=== PATIENT | male | born 1940 | race Caucasian/White ===

== ENCOUNTER 2023-07-07 08:53 | Outpatient (RCR) | payer MEDICARE, SELFPAY ==
[2023-06-23] VITALS (11 sets, daily range): BP systolic 135–158; BP diastolic 48–59; BMI 29.8
[2023-06-23] MEDS: NSS 250 IV (09:09)
[2023-06-23 09:10] LABS: % Basophils 0.5 % (0-2); % Eosinophils 1.3 % (0-6); % Immature Granulocytes 0.3 % (0-0.5); % Lymphocytes 15.8 % (20.5-51.1); % Neutrophils 68.1 % (42.2-75.2); Absolute Eosinophils 0.1 10^3/uL (0-0.7); Absolute Lymphocytes 0.6 10^3/uL (1.2-3.4); Absolute Monocytes 0.5 10^3/uL (0.1-0.6); Absolute Neutrophils 2.6 10^3/uL (1.4-6.5); Hematocrit 31.4 % (39.0-52.0); Hemoglobin 10.5 g/dL (13.0-18.0); Mean Corp Hgb Conc. 33.4 g/dL (33.0-37.0); Mean Corpuscular Hgb 30.2 pg (27.0-31.0); Mean Corpuscular Volume 90.2 fL (80.0-94.0); Mean Platelet Volume 9.2 fL (7.4-10.4); Platelet Count 199 10^3/uL (130-400); Red Blood Cell Count 3.48 10^6/uL (4.70-6.10); Red Cell Dist. Width 15.4 % (11.5-14.5); White Blood Cell Count 3.9 10^3/uL (4.8-10.8)
[2023-06-23] MEDS: TYLENOL 650 MG PO (09:10)
[2023-06-23] MEDS: GAMMAGARD 50 IV (09:10)
[2023-06-23] MEDS: GAMMAGARD 200 IV ×4 (09:58→12:47)
[2023-06-23 10:50] LABS: ALT (SGPT) 24 U/L (0-50); AST (SGOT) 35 U/L (17-59); Alkaline Phosphatase 91 U/L (38-126); Blood Urea Nitrogen 43 mg/dl (9-20); Calcium 9.2 mg/dl (8.4-10.2); Carbon Dioxide 27 mmol/L (22-30); Chloride 102 mmol/L (98-107); Creatine Phosphokinase 281 U/L (55-170); Estimated Creatinine Clearance 40 ml/min; Glucose 95 mg/dl (70-99); Potassium 3.9 mmol/L (3.5-5.1); Sodium 135 mmol/L (135-145); Total Bilirubin 0.7 mg/dl (0.2-1.3); Total Protein 7.5 g/dl (6.3-8.2); eGFR 37.35
[2023-06-23 11:12] LABS: Erythrocyte Sed Rate 85 mm/hour (0-20)
[2023-06-23 11:53] LABS: Folate > 20.0 ng/ml (2.76-20); Vitamin B12 833 pg/ml (239-931)
[2023-07-07] VITALS (12 sets, daily range): BP systolic 128–157; BP diastolic 49–67; BMI 29.9
[2023-07-07] MEDS: TYLENOL 650 MG PO (09:22)
[2023-07-07] MEDS: GAMMAGARD 50 IV (09:29)
[2023-07-07 09:46] LABS: Hematocrit 30.4 % (39.0-52.0); Hemoglobin 10.2 g/dL (13.0-18.0); Mean Corp Hgb Conc. 33.6 g/dL (33.0-37.0); Mean Corpuscular Hgb 30.3 pg (27.0-31.0); Mean Corpuscular Volume 90.2 fL (80.0-94.0); Mean Platelet Volume 9.8 fL (7.4-10.4); Platelet Count 250 10^3/uL (130-400); Red Blood Cell Count 3.37 10^6/uL (4.70-6.10); Red Cell Dist. Width 15.3 % (11.5-14.5); White Blood Cell Count 4.4 10^3/uL (4.8-10.8)
[2023-07-07] MEDS: NSS 250 IV (10:00)
[2023-07-07] MEDS: GAMMAGARD 200 IV (10:19)
[2023-07-07 10:43] LABS: Erythrocyte Sed Rate 132 mm/hour (0-20)
[2023-07-07 10:49] LABS: ALT (SGPT) 23 U/L (0-50); AST (SGOT) 33 U/L (17-59); Albumin 3.9 g/dl (3.5-5.0); Alkaline Phosphatase 87 U/L (38-126); Blood Urea Nitrogen 41 mg/dl (9-20); Carbon Dioxide 26 mmol/L (22-30); Chloride 103 mmol/L (98-107); Creatine Phosphokinase 223 U/L (55-170); Estimated Creatinine Clearance 44 ml/min; Glucose 116 mg/dl (70-99); Potassium 3.9 mmol/L (3.5-5.1); Sodium 136 mmol/L (135-145); Total Bilirubin 0.6 mg/dl (0.2-1.3); Total Protein 7.3 g/dl (6.3-8.2); eGFR 43.02
[2023-07-07] MEDS: GAMMAGARD 300 IV ×2 (11:27→12:50)
[2023-07-07 11:56] LABS: Folate > 20.0 ng/ml (2.76-20); Vitamin B12 989 pg/ml (239-931)
== END 2023-07-07 15:41 | disposition home or self-care (01) ==
LOC: OID 08:53
PROVIDERS: ATTENDING PHYSICIAN Psychiatry & Neurology Neurology; FAMILY PHYSICIAN Family Medicine
DX: G61.81 Chronic inflammatory demyelinating polyneuritis (principal)
CPT/HCPCS: 36415; 80053; 82550; 82607; 82746; 85025; 85027; 85652; 96361; 96365; 96366; J1569

== ENCOUNTER 2023-08-04 08:28 | Outpatient (RCR) | payer MEDICARE, SELFPAY ==
[2023-07-21] VITALS (12 sets, daily range): BP systolic 123–154; BP diastolic 56–85; BMI 29.9
[2023-07-21 09:07] LABS: % Basophils 0.8 % (0-2); % Lymphocytes 17.7 % (20.5-51.1); % Monocytes 12.7 % (1.7-9.3); % Neutrophils 65.8 % (42.2-75.2); Absolute Eosinophils 0.1 10^3/uL (0-0.7); Absolute Lymphocytes 0.6 10^3/uL (1.2-3.4); Absolute Monocytes 0.5 10^3/uL (0.1-0.6); Absolute Neutrophils 2.4 10^3/uL (1.4-6.5); Hematocrit 31.7 % (39.0-52.0); Hemoglobin 10.5 g/dL (13.0-18.0); Mean Corp Hgb Conc. 33.1 g/dL (33.0-37.0); Mean Corpuscular Hgb 29.8 pg (27.0-31.0); Mean Corpuscular Volume 90.1 fL (80.0-94.0); Mean Platelet Volume 9.1 fL (7.4-10.4); Platelet Count 201 10^3/uL (130-400); Red Blood Cell Count 3.52 10^6/uL (4.70-6.10); White Blood Cell Count 3.6 10^3/uL (4.8-10.8)
[2023-07-21] MEDS: TYLENOL 650 MG PO (09:10)
[2023-07-21] MEDS: NSS 250 IV (09:10)
[2023-07-21] MEDS: GAMMAGARD 50 IV (09:10)
[2023-07-21 09:45] LABS: ALT (SGPT) 22 U/L (0-50); AST (SGOT) 32 U/L (17-59); Alkaline Phosphatase 90 U/L (38-126); Blood Urea Nitrogen 40 mg/dl (9-20); Carbon Dioxide 29 mmol/L (22-30); Chloride 102 mmol/L (98-107); Creatine Phosphokinase 240 U/L (55-170); Estimated Creatinine Clearance 42 ml/min; Glucose 114 mg/dl (70-99); Sodium 136 mmol/L (135-145); Total Bilirubin 0.6 mg/dl (0.2-1.3); Total Protein 7.7 g/dl (6.3-8.2)
[2023-07-21] MEDS: GAMMAGARD 200 IV (09:55)
[2023-07-21 10:51] LABS: Folate > 20.0 ng/ml (2.76-20); Vitamin B12 784 pg/ml (239-931)
[2023-07-21] MEDS: GAMMAGARD 300 IV ×2 (11:03→12:28)
[2023-07-21 11:49] LABS: Erythrocyte Sed Rate 113 mm/hour (0-20)
[2023-08-04] VITALS (11 sets, daily range): BP systolic 117–136; BP diastolic 48–61; BMI 30.1
[2023-08-04 08:57] LABS: % Basophils 0.7 % (0-2); % Eosinophils 3.2 % (0-6); % Immature Granulocytes 0.2 % (0-0.5); % Lymphocytes 17.9 % (20.5-51.1); % Monocytes 12.7 % (1.7-9.3); % Neutrophils 65.3 % (42.2-75.2); Absolute Eosinophils 0.1 10^3/uL (0-0.7); Absolute Lymphocytes 0.7 10^3/uL (1.2-3.4); Absolute Monocytes 0.5 10^3/uL (0.1-0.6); Absolute Neutrophils 2.6 10^3/uL (1.4-6.5); Hematocrit 32.7 % (39.0-52.0); Mean Corp Hgb Conc. 33.6 g/dL (33.0-37.0); Mean Corpuscular Hgb 30.3 pg (27.0-31.0); Mean Corpuscular Volume 90.1 fL (80.0-94.0); Mean Platelet Volume 9.2 fL (7.4-10.4); Platelet Count 201 10^3/uL (130-400); Red Blood Cell Count 3.63 10^6/uL (4.70-6.10); Red Cell Dist. Width 15.1 % (11.5-14.5)
[2023-08-04] MEDS: TYLENOL 650 MG PO (09:00)
[2023-08-04] MEDS: NSS 250 IV (09:00)
[2023-08-04] MEDS: GAMMAGARD 50 IV (09:01)
[2023-08-04 09:39] LABS: ALT (SGPT) 22 U/L (0-50); AST (SGOT) 33 U/L (17-59); Albumin 4.2 g/dl (3.5-5.0); Alkaline Phosphatase 94 U/L (38-126); Blood Urea Nitrogen 41 mg/dl (9-20); Calcium 9.1 mg/dl (8.4-10.2); Carbon Dioxide 26 mmol/L (22-30); Chloride 102 mmol/L (98-107); Creatine Phosphokinase 253 U/L (55-170); Estimated Creatinine Clearance 36 ml/min; Glucose 101 mg/dl (70-99); Sodium 137 mmol/L (135-145); Total Bilirubin 0.5 mg/dl (0.2-1.3); Total Protein 7.9 g/dl (6.3-8.2); eGFR 32.91
[2023-08-04 09:43] LABS: Erythrocyte Sed Rate 108 mm/hour (0-20)
[2023-08-04] MEDS: GAMMAGARD 200 IV (09:56)
[2023-08-04 10:47] LABS: Folate > 20.0 ng/ml (2.76-20); Vitamin B12 855 pg/ml (239-931)
[2023-08-04] MEDS: GAMMAGARD 300 IV ×2 (11:00→12:30)
== END 2023-08-05 10:07 | disposition home or self-care (01) ==
LOC: OID 08:28
PROVIDERS: ATTENDING PHYSICIAN Psychiatry & Neurology Neurology; FAMILY PHYSICIAN Family Medicine
DX: G61.81 Chronic inflammatory demyelinating polyneuritis (principal)
CPT/HCPCS: 36415; 80053; 82550; 82607; 82746; 85025; 85652; 96361; 96365; 96366; J1569

== ENCOUNTER 2023-09-15 08:28 | Outpatient (RCR) | payer MEDICARE, SELFPAY ==
[2023-08-18] VITALS (11 sets, daily range): BP systolic 132–175; BP diastolic 55–70; BMI 30.2
[2023-08-18 09:09] LABS: % Basophils 0.8 % (0-2); % Eosinophils 3.1 % (0-6); % Immature Granulocytes 0.4 % (0-0.5); % Neutrophils 72.7 % (42.2-75.2); Absolute Eosinophils 0.2 10^3/uL (0-0.7); Absolute Lymphocytes 0.6 10^3/uL (1.2-3.4); Absolute Monocytes 0.5 10^3/uL (0.1-0.6); Absolute Neutrophils 3.6 10^3/uL (1.4-6.5); Hematocrit 31.5 % (39.0-52.0); Hemoglobin 10.6 g/dL (13.0-18.0); Mean Corp Hgb Conc. 33.7 g/dL (33.0-37.0); Mean Corpuscular Hgb 30.1 pg (27.0-31.0); Mean Corpuscular Volume 89.5 fL (80.0-94.0); Mean Platelet Volume 9.4 fL (7.4-10.4); Platelet Count 202 10^3/uL (130-400); Red Blood Cell Count 3.52 10^6/uL (4.70-6.10); Red Cell Dist. Width 15.1 % (11.5-14.5); White Blood Cell Count 4.9 10^3/uL (4.8-10.8)
[2023-08-18] MEDS: TYLENOL 650 MG PO (09:09)
[2023-08-18] MEDS: NSS 250 IV (09:09)
[2023-08-18] MEDS: GAMMAGARD 50 IV (09:10)
[2023-08-18] MEDS: GAMMAGARD 200 IV (10:01)
[2023-08-18 10:13] LABS: ALT (SGPT) 22 U/L (0-50); AST (SGOT) 30 U/L (17-59); Albumin 4.1 g/dl (3.5-5.0); Alkaline Phosphatase 87 U/L (38-126); Blood Urea Nitrogen 38 mg/dl (9-20); Calcium 9.4 mg/dl (8.4-10.2); Carbon Dioxide 25 mmol/L (22-30); Chloride 103 mmol/L (98-107); Creatine Phosphokinase 224 U/L (55-170); Estimated Creatinine Clearance 42 ml/min; Glucose 111 mg/dl (70-99); Potassium 3.8 mmol/L (3.5-5.1); Sodium 137 mmol/L (135-145); Total Bilirubin 0.5 mg/dl (0.2-1.3); Total Protein 7.8 g/dl (6.3-8.2)
[2023-08-18 10:31] LABS: Erythrocyte Sed Rate 106 mm/hour (0-20)
[2023-08-18] MEDS: GAMMAGARD 300 IV ×2 (11:08→12:27)
[2023-08-18 13:42] LABS: Folate > 20.0 ng/ml (2.76-20); Vitamin B12 988 pg/ml (239-931)
[2023-09-01] VITALS (12 sets, daily range): BP systolic 130–168; BP diastolic 57–73
[2023-09-01 09:00] LABS: % Basophils 1.2 % (0-2); % Eosinophils 3.3 % (0-6); % Immature Granulocytes 0.2 % (0-0.5); % Monocytes 12.1 % (1.7-9.3); % Neutrophils 65.2 % (42.2-75.2); Absolute Basophils 0.1 10^3/uL (0-0.2); Absolute Eosinophils 0.2 10^3/uL (0-0.7); Absolute Lymphocytes 0.9 10^3/uL (1.2-3.4); Absolute Monocytes 0.6 10^3/uL (0.1-0.6); Absolute Neutrophils 3.2 10^3/uL (1.4-6.5); Hematocrit 31.7 % (39.0-52.0); Hemoglobin 10.5 g/dL (13.0-18.0); Mean Corp Hgb Conc. 33.1 g/dL (33.0-37.0); Mean Corpuscular Hgb 29.4 pg (27.0-31.0); Mean Corpuscular Volume 88.8 fL (80.0-94.0); Platelet Count 227 10^3/uL (130-400); Red Blood Cell Count 3.57 10^6/uL (4.70-6.10); White Blood Cell Count 4.9 10^3/uL (4.8-10.8)
[2023-09-01] MEDS: NSS 250 IV (09:04)
[2023-09-01] MEDS: TYLENOL 650 MG PO (09:05)
[2023-09-01] MEDS: GAMMAGARD 50 IV (09:05)
[2023-09-01 09:48] LABS: ALT (SGPT) 20 U/L (0-50); AST (SGOT) 27 U/L (17-59); Albumin 4.1 g/dl (3.5-5.0); Alkaline Phosphatase 89 U/L (38-126); Blood Urea Nitrogen 41 mg/dl (9-20); Calcium 9.4 mg/dl (8.4-10.2); Carbon Dioxide 24 mmol/L (22-30); Chloride 104 mmol/L (98-107); Creatine Phosphokinase 230 U/L (55-170); Estimated Creatinine Clearance 42 ml/min; Glucose 111 mg/dl (70-99); Potassium 4.1 mmol/L (3.5-5.1); Sodium 137 mmol/L (135-145); Total Bilirubin 0.5 mg/dl (0.2-1.3); Total Protein 7.8 g/dl (6.3-8.2)
[2023-09-01] MEDS: GAMMAGARD 200 IV (09:51)
[2023-09-01 09:56] LABS: Erythrocyte Sed Rate 130 mm/hour (0-20)
[2023-09-01] MEDS: GAMMAGARD 300 IV ×2 (11:01→12:24)
[2023-09-01 11:48] LABS: Folate > 20.0 ng/ml (2.76-20); Vitamin B12 778 pg/ml (239-931)
[2023-09-15] VITALS (12 sets, daily range): BP systolic 128–150; BP diastolic 43–53; BMI 29.6
[2023-09-15 08:58] LABS: % Eosinophils 4.4 % (0-6); % Lymphocytes 17.4 % (20.5-51.1); % Monocytes 10.7 % (1.7-9.3); % Neutrophils 66.5 % (42.2-75.2); Absolute Eosinophils 0.2 10^3/uL (0-0.7); Absolute Lymphocytes 0.7 10^3/uL (1.2-3.4); Absolute Monocytes 0.4 10^3/uL (0.1-0.6); Absolute Neutrophils 2.8 10^3/uL (1.4-6.5); Hematocrit 30.6 % (39.0-52.0); Hemoglobin 10.3 g/dL (13.0-18.0); Mean Corp Hgb Conc. 33.7 g/dL (33.0-37.0); Mean Corpuscular Hgb 29.9 pg (27.0-31.0); Mean Platelet Volume 9.1 fL (7.4-10.4); Platelet Count 206 10^3/uL (130-400); Red Blood Cell Count 3.44 10^6/uL (4.70-6.10); Red Cell Dist. Width 15.4 % (11.5-14.5); White Blood Cell Count 4.1 10^3/uL (4.8-10.8)
[2023-09-15] MEDS: NSS 250 IV (09:02)
[2023-09-15] MEDS: GAMMAGARD 50 IV (09:03)
[2023-09-15] MEDS: TYLENOL 650 MG PO (09:03)
[2023-09-15 09:41] LABS: ALT (SGPT) 22 U/L (0-50); AST (SGOT) 28 U/L (17-59); Alkaline Phosphatase 88 U/L (38-126); Blood Urea Nitrogen 38 mg/dl (9-20); Calcium 9.4 mg/dl (8.4-10.2); Carbon Dioxide 27 mmol/L (22-30); Chloride 102 mmol/L (98-107); Creatine Phosphokinase 186 U/L (55-170); Estimated Creatinine Clearance 40 ml/min; Glucose 140 mg/dl (70-99); Potassium 3.8 mmol/L (3.5-5.1); Sodium 136 mmol/L (135-145); Total Bilirubin 0.4 mg/dl (0.2-1.3); Total Protein 7.8 g/dl (6.3-8.2); eGFR 37.35
[2023-09-15 09:46] LABS: Erythrocyte Sed Rate 123 mm/hour (0-20)
[2023-09-15] MEDS: GAMMAGARD 200 IV (09:47)
[2023-09-15 10:46] LABS: Folate > 20.0 ng/ml (2.76-20); Vitamin B12 928 pg/ml (239-931)
[2023-09-15] MEDS: GAMMAGARD 300 IV ×2 (10:54→12:14)
== END 2023-09-15 23:59 | disposition home or self-care (01) ==
LOC: OID 08:28
PROVIDERS: ATTENDING PHYSICIAN Psychiatry & Neurology Neurology; FAMILY PHYSICIAN Family Medicine
DX: G61.81 Chronic inflammatory demyelinating polyneuritis (principal)
CPT/HCPCS: 36415; 80053; 82550; 82607; 82746; 85025; 85652; 96361; 96365; 96366; J1569

== ENCOUNTER 2023-10-13 08:28 | Outpatient (RCR) | payer MEDICARE, SELFPAY ==
[2023-09-29] VITALS (10 sets, daily range): BP systolic 135–154; BP diastolic 51–66; BMI 29.4
[2023-09-29 08:58] LABS: % Basophils 0.9 % (0-2); % Eosinophils 2.3 % (0-6); % Immature Granulocytes 0.6 % (0-0.5); % Lymphocytes 21.6 % (20.5-51.1); % Monocytes 15.6 % (1.7-9.3); Absolute Eosinophils 0.1 10^3/uL (0-0.7); Absolute Lymphocytes 0.8 10^3/uL (1.2-3.4); Absolute Monocytes 0.6 10^3/uL (0.1-0.6); Absolute Neutrophils 2.1 10^3/uL (1.4-6.5); Hematocrit 31.7 % (39.0-52.0); Hemoglobin 10.6 g/dL (13.0-18.0); Mean Corp Hgb Conc. 33.4 g/dL (33.0-37.0); Mean Corpuscular Hgb 29.9 pg (27.0-31.0); Mean Corpuscular Volume 89.3 fL (80.0-94.0); Platelet Count 193 10^3/uL (130-400); Red Blood Cell Count 3.55 10^6/uL (4.70-6.10); Red Cell Dist. Width 15.4 % (11.5-14.5); White Blood Cell Count 3.5 10^3/uL (4.8-10.8)
[2023-09-29] MEDS: TYLENOL 650 MG PO (09:07)
[2023-09-29] MEDS: NSS 250 IV (09:07)
[2023-09-29] MEDS: GAMMAGARD 50 IV (09:08)
[2023-09-29 09:48] LABS: ALT (SGPT) 25 U/L (0-50); AST (SGOT) 37 U/L (17-59); Albumin 4.2 g/dl (3.5-5.0); Alkaline Phosphatase 95 U/L (38-126); Blood Urea Nitrogen 39 mg/dl (9-20); Calcium 9.5 mg/dl (8.4-10.2); Carbon Dioxide 27 mmol/L (22-30); Chloride 102 mmol/L (98-107); Creatine Phosphokinase 275 U/L (55-170); Estimated Creatinine Clearance 42 ml/min; Glucose 92 mg/dl (70-99); HDL Cholesterol 50 mg/dl; LDL Cholesterol, Calculated 65 mg/dl; Potassium 4.1 mmol/L (3.5-5.1); Sodium 139 mmol/L (135-145); Total Bilirubin 0.7 mg/dl (0.2-1.3); Total Cholesterol 131 mg/dl (50-199); Total Protein 8.2 g/dl (6.3-8.2); Triglyceride 82 mg/dl (10-149); Very Low Density Lipoprotein 16 mg/dl (0-30)
[2023-09-29] MEDS: GAMMAGARD 200 IV (09:53)
[2023-09-29 10:30] LABS: Erythrocyte Sed Rate 111 mm/hour (0-20)
[2023-09-29] MEDS: GAMMAGARD 300 IV ×2 (10:50→11:57)
[2023-09-29 13:49] LABS: Folate > 20.0 ng/ml (2.76-20); Vitamin B12 839 pg/ml (239-931)
[2023-10-13] VITALS (11 sets, daily range): BP systolic 125–161; BP diastolic 48–71; BMI 29.7
[2023-10-13 08:57] LABS: % Basophils 0.5 % (0-2); % Eosinophils 1.9 % (0-6); % Immature Granulocytes 0.3 % (0-0.5); % Lymphocytes 19.7 % (20.5-51.1); % Monocytes 11.4 % (1.7-9.3); % Neutrophils 66.2 % (42.2-75.2); Absolute Eosinophils 0.1 10^3/uL (0-0.7); Absolute Lymphocytes 0.7 10^3/uL (1.2-3.4); Absolute Monocytes 0.4 10^3/uL (0.1-0.6); Absolute Neutrophils 2.5 10^3/uL (1.4-6.5); Hematocrit 30.3 % (39.0-52.0); Hemoglobin 10.1 g/dL (13.0-18.0); Mean Corp Hgb Conc. 33.3 g/dL (33.0-37.0); Mean Corpuscular Hgb 29.8 pg (27.0-31.0); Mean Corpuscular Volume 89.4 fL (80.0-94.0); Platelet Count 184 10^3/uL (130-400); Red Blood Cell Count 3.39 10^6/uL (4.70-6.10); Red Cell Dist. Width 15.6 % (11.5-14.5); White Blood Cell Count 3.7 10^3/uL (4.8-10.8)
[2023-10-13] MEDS: TYLENOL 650 MG PO (09:04)
[2023-10-13] MEDS: NSS 250 IV (09:04)
[2023-10-13] MEDS: GAMMAGARD 50 IV (09:05)
[2023-10-13] MEDS: GAMMAGARD 200 IV (09:54)
[2023-10-13 10:30] LABS: Erythrocyte Sed Rate 112 mm/hour (0-20)
[2023-10-13 10:48] LABS: ALT (SGPT) 21 U/L (0-50); AST (SGOT) 28 U/L (17-59); Albumin 3.9 g/dl (3.5-5.0); Alkaline Phosphatase 86 U/L (38-126); Blood Urea Nitrogen 41 mg/dl (9-20); Calcium 9.1 mg/dl (8.4-10.2); Carbon Dioxide 26 mmol/L (22-30); Chloride 102 mmol/L (98-107); Creatine Phosphokinase 212 U/L (55-170); Estimated Creatinine Clearance 40 ml/min; Glucose 136 mg/dl (70-99); Sodium 139 mmol/L (135-145); Total Bilirubin 0.5 mg/dl (0.2-1.3); Total Protein 7.7 g/dl (6.3-8.2); eGFR 37.35
[2023-10-13] MEDS: GAMMAGARD 300 IV ×2 (11:01→12:25)
[2023-10-13 13:34] LABS: Folate > 20.0 ng/ml (2.76-20); Vitamin B12 > 1000 pg/ml (239-931)
[2023-10-14 18:18] LABS: ANA, IgG Reflex to HEp-2 Detected (None Detected)
[2023-10-15 14:33] LABS: Rheumatoid Agglutinin Less Than 10 IU (<10 IU)
[2023-10-16 11:57] LABS: ANA Pattern Speckled; ANA, HEp-2, IgG Detected (<1:80)
== END 2023-10-16 23:59 | disposition home or self-care (01) ==
LOC: OID 08:28
PROVIDERS: ATTENDING PHYSICIAN Psychiatry & Neurology Neurology; FAMILY PHYSICIAN Family Medicine
DX: G61.81 Chronic inflammatory demyelinating polyneuritis (principal)
CPT/HCPCS: 36415; 80053; 80061; 82550; 82607; 82746; 85025; 85652; 86038; 86039; 86430; 96361; 96365; 96366; J1569

== ENCOUNTER 2023-11-10 08:26 | Outpatient (RCR) | payer MEDICARE, SELFPAY ==
[2023-10-27] VITALS (12 sets, daily range): BP systolic 110–156; BP diastolic 49–80
[2023-10-27] MEDS: NSS 250 IV (08:52)
[2023-10-27] MEDS: TYLENOL 650 MG PO (08:53)
[2023-10-27] MEDS: GAMMAGARD 50 IV (08:53)
[2023-10-27 09:29] LABS: % Basophils 0.7 % (0-2); % Eosinophils 1.4 % (0-6); % Immature Granulocytes 0.2 % (0-0.5); % Lymphocytes 25.8 % (20.5-51.1); % Neutrophils 58.9 % (42.2-75.2); Absolute Eosinophils 0.1 10^3/uL (0-0.7); Absolute Lymphocytes 1.1 10^3/uL (1.2-3.4); Absolute Monocytes 0.6 10^3/uL (0.1-0.6); Absolute Neutrophils 2.5 10^3/uL (1.4-6.5); Hematocrit 31.2 % (39.0-52.0); Hemoglobin 10.7 g/dL (13.0-18.0); Mean Corp Hgb Conc. 34.3 g/dL (33.0-37.0); Mean Corpuscular Hgb 29.8 pg (27.0-31.0); Mean Corpuscular Volume 86.9 fL (80.0-94.0); Mean Platelet Volume 9.8 fL (7.4-10.4); Nucleated Red Blood Cells % 0 % (-); Platelet Count 221 10^3/uL (130-400); Red Blood Cell Count 3.59 10^6/uL (4.70-6.10); Red Cell Dist. Width 15.7 % (11.5-14.5); White Blood Cell Count 4.3 10^3/uL (4.8-10.8)
[2023-10-27] MEDS: GAMMAGARD 200 IV (09:37)
[2023-10-27 09:49] LABS: ALT (SGPT) 23 U/L (0-50); AST (SGOT) 31 U/L (17-59); Albumin 4.3 g/dl (3.5-5.0); Alkaline Phosphatase 90 U/L (38-126); Blood Urea Nitrogen 43 mg/dl (9-20); Calcium 9.6 mg/dl (8.4-10.2); Carbon Dioxide 27 mmol/L (22-30); Chloride 102 mmol/L (98-107); Creatine Phosphokinase 248 U/L (55-170); Glucose 109 mg/dl (70-99); Potassium 4.2 mmol/L (3.5-5.1); Sodium 140 mmol/L (135-145); Total Bilirubin 0.5 mg/dl (0.2-1.3); Total Protein 8.3 g/dl (6.3-8.2)
[2023-10-27 09:54] LABS: Erythrocyte Sed Rate 144 mm/hour (0-20)
[2023-10-27] MEDS: GAMMAGARD 300 IV ×2 (10:42→12:08)
[2023-10-27 10:55] LABS: Folate > 20.0 ng/ml (2.76-20)
[2023-10-27 11:54] LABS: Vitamin B12 754 pg/ml (239-931)
[2023-11-10] VITALS (11 sets, daily range): BP systolic 125–157; BP diastolic 45–66; BMI 29.4
[2023-11-10 09:15] LABS: % Basophils 0.8 % (0-2); % Eosinophils 1.1 % (0-6); % Immature Granulocytes 0.3 % (0-0.5); % Lymphocytes 20.4 % (20.5-51.1); % Monocytes 13.1 % (1.7-9.3); % Neutrophils 64.3 % (42.2-75.2); Absolute Lymphocytes 0.8 10^3/uL (1.2-3.4); Absolute Monocytes 0.5 10^3/uL (0.1-0.6); Absolute Neutrophils 2.4 10^3/uL (1.4-6.5); Hematocrit 30.3 % (39.0-52.0); Hemoglobin 10.4 g/dL (13.0-18.0); Mean Corp Hgb Conc. 34.3 g/dL (33.0-37.0); Mean Corpuscular Hgb 30.3 pg (27.0-31.0); Mean Corpuscular Volume 88.3 fL (80.0-94.0); Mean Platelet Volume 8.8 fL (7.4-10.4); Platelet Count 186 10^3/uL (130-400); Red Blood Cell Count 3.43 10^6/uL (4.70-6.10); Red Cell Dist. Width 15.2 % (11.5-14.5); White Blood Cell Count 3.7 10^3/uL (4.8-10.8)
[2023-11-10] MEDS: NSS 250 IV (09:18)
[2023-11-10] MEDS: TYLENOL 650 MG PO (09:19)
[2023-11-10] MEDS: GAMMAGARD 50 IV (09:19)
[2023-11-10 09:39] LABS: ALT (SGPT) 19 U/L (0-50); AST (SGOT) 28 U/L (17-59); Albumin 4.2 g/dl (3.5-5.0); Alkaline Phosphatase 90 U/L (38-126); Blood Urea Nitrogen 37 mg/dl (9-20); Calcium 9.4 mg/dl (8.4-10.2); Carbon Dioxide 28 mmol/L (22-30); Chloride 102 mmol/L (98-107); Creatine Phosphokinase 248 U/L (55-170); Estimated Creatinine Clearance 37 ml/min; Glucose 119 mg/dl (70-99); Potassium 3.8 mmol/L (3.5-5.1); Sodium 140 mmol/L (135-145); Total Bilirubin 0.7 mg/dl (0.2-1.3); Total Protein 8.1 g/dl (6.3-8.2)
[2023-11-10] MEDS: GAMMAGARD 200 IV (10:06)
[2023-11-10 10:33] LABS: Erythrocyte Sed Rate 131 mm/hour (0-20)
[2023-11-10 10:47] LABS: Folate > 20.0 ng/ml (2.76-20); Vitamin B12 940 pg/ml (239-931)
[2023-11-10] MEDS: GAMMAGARD 300 IV ×2 (11:14→12:35)
== END 2023-11-11 10:50 | disposition home or self-care (01) ==
LOC: OID 08:26
PROVIDERS: ATTENDING PHYSICIAN Psychiatry & Neurology Neurology; FAMILY PHYSICIAN Family Medicine
DX: G61.81 Chronic inflammatory demyelinating polyneuritis (principal)
CPT/HCPCS: 36415; 80053; 82550; 82607; 82746; 85025; 85652; 96361; 96365; 96366; J1569

== ENCOUNTER 2023-12-08 08:22 | Outpatient (RCR) | payer MEDICARE, SELFPAY ==
[2023-11-24] VITALS (11 sets, daily range): BP systolic 135–153; BP diastolic 49–75; BMI 29.4
[2023-11-24 09:01] LABS: % Basophils 0.5 % (0-2); % Eosinophils 1.3 % (0-6); % Immature Granulocytes 0.5 % (0-0.5); % Lymphocytes 19.6 % (20.5-51.1); % Monocytes 13.2 % (1.7-9.3); % Neutrophils 64.9 % (42.2-75.2); Absolute Eosinophils 0.1 10^3/uL (0-0.7); Absolute Lymphocytes 0.7 10^3/uL (1.2-3.4); Absolute Monocytes 0.5 10^3/uL (0.1-0.6); Absolute Neutrophils 2.4 10^3/uL (1.4-6.5); Hemoglobin 9.3 g/dL (13.0-18.0); Mean Corp Hgb Conc. 33.2 g/dL (33.0-37.0); Mean Corpuscular Hgb 30.1 pg (27.0-31.0); Mean Corpuscular Volume 90.6 fL (80.0-94.0); Platelet Count 198 10^3/uL (130-400); Red Blood Cell Count 3.09 10^6/uL (4.70-6.10); Red Cell Dist. Width 15.5 % (11.5-14.5); White Blood Cell Count 3.7 10^3/uL (4.8-10.8)
[2023-11-24] MEDS: TYLENOL 650 MG PO (09:07)
[2023-11-24] MEDS: NSS 250 IV (09:07)
[2023-11-24] MEDS: GAMMAGARD 50 IV (09:08)
[2023-11-24] MEDS: GAMMAGARD 200 IV (09:52)
[2023-11-24 10:20] LABS: ALT (SGPT) 20 U/L (0-50); AST (SGOT) 27 U/L (17-59); Alkaline Phosphatase 87 U/L (38-126); Blood Urea Nitrogen 38 mg/dl (9-20); Calcium 9.2 mg/dl (8.4-10.2); Carbon Dioxide 28 mmol/L (22-30); Chloride 102 mmol/L (98-107); Creatine Phosphokinase 200 U/L (55-170); Estimated Creatinine Clearance 37 ml/min; Glucose 131 mg/dl (70-99); Potassium 3.9 mmol/L (3.5-5.1); Sodium 138 mmol/L (135-145); Total Bilirubin 0.5 mg/dl (0.2-1.3); Total Protein 7.3 g/dl (6.3-8.2)
[2023-11-24 10:48] LABS: Erythrocyte Sed Rate 119 mm/hour (0-20)
[2023-11-24] MEDS: GAMMAGARD 300 IV ×2 (10:59→12:21)
[2023-11-24 11:27] LABS: Folate > 20.0 ng/ml (2.76-20); Vitamin B12 > 1000 pg/ml (239-931)
[2023-12-08] VITALS (11 sets, daily range): BP systolic 123–164; BP diastolic 58–73; BMI 29.3
[2023-12-08] MEDS: GAMMAGARD 50 IV (08:54)
[2023-12-08] MEDS: NSS 250 IV (08:54)
[2023-12-08 08:55] LABS: % Basophils 0.6 % (0-2); % Eosinophils 1.7 % (0-6); % Immature Granulocytes 0.3 % (0-0.5); % Lymphocytes 20.9 % (20.5-51.1); % Monocytes 13.9 % (1.7-9.3); % Neutrophils 62.6 % (42.2-75.2); Absolute Eosinophils 0.1 10^3/uL (0-0.7); Absolute Lymphocytes 0.8 10^3/uL (1.2-3.4); Absolute Monocytes 0.5 10^3/uL (0.1-0.6); Absolute Neutrophils 2.3 10^3/uL (1.4-6.5); Hematocrit 29.7 % (39.0-52.0); Hemoglobin 9.9 g/dL (13.0-18.0); Mean Corp Hgb Conc. 33.3 g/dL (33.0-37.0); Mean Corpuscular Hgb 30.3 pg (27.0-31.0); Mean Corpuscular Volume 90.8 fL (80.0-94.0); Mean Platelet Volume 9.1 fL (7.4-10.4); Platelet Count 196 10^3/uL (130-400); Red Blood Cell Count 3.27 10^6/uL (4.70-6.10); Red Cell Dist. Width 15.5 % (11.5-14.5); White Blood Cell Count 3.6 10^3/uL (4.8-10.8)
[2023-12-08 09:41] LABS: ALT (SGPT) 25 U/L (0-50); AST (SGOT) 34 U/L (17-59); Albumin 4.1 g/dl (3.5-5.0); Alkaline Phosphatase 87 U/L (38-126); Blood Urea Nitrogen 39 mg/dl (9-20); Calcium 9.4 mg/dl (8.4-10.2); Carbon Dioxide 27 mmol/L (22-30); Chloride 102 mmol/L (98-107); Creatine Phosphokinase 220 U/L (55-170); Estimated Creatinine Clearance 37 ml/min; Glucose 104 mg/dl (70-99); Sodium 138 mmol/L (135-145); Total Bilirubin 0.4 mg/dl (0.2-1.3); Total Protein 7.6 g/dl (6.3-8.2)
[2023-12-08] MEDS: GAMMAGARD 200 IV (09:42)
[2023-12-08 10:02] LABS: Erythrocyte Sed Rate 102 mm/hour (0-20)
[2023-12-08 10:43] LABS: Folate > 20.0 ng/ml (2.76-20); Vitamin B12 863 pg/ml (239-931)
[2023-12-08] MEDS: GAMMAGARD 300 IV ×2 (10:47→12:09)
== END 2023-12-09 10:41 | disposition home or self-care (01) ==
LOC: OID 08:22
PROVIDERS: ATTENDING PHYSICIAN Psychiatry & Neurology Neurology; FAMILY PHYSICIAN Family Medicine
DX: G61.81 Chronic inflammatory demyelinating polyneuritis (principal)
CPT/HCPCS: 36415; 80053; 82550; 82607; 82746; 85025; 85652; 96361; 96365; 96366; J1569

== ENCOUNTER 2024-01-05 08:28 | Outpatient (RCR) | payer MEDICARE, SELFPAY ==
[2023-12-22] VITALS (11 sets, daily range): BP systolic 130–166; BP diastolic 45–76; BMI 29.6
[2023-12-22] MEDS: GAMMAGARD 50 IV (09:16)
[2023-12-22] MEDS: NSS 250 IV (09:16)
[2023-12-22] MEDS: TYLENOL 650 MG PO (09:18)
[2023-12-22 09:22] LABS: % Basophils 0.9 % (0-2); % Eosinophils 2.8 % (0-6); % Immature Granulocytes 0.3 % (0-0.5); % Lymphocytes 21.5 % (20.5-51.1); % Monocytes 13.5 % (1.7-9.3); Absolute Eosinophils 0.1 10^3/uL (0-0.7); Absolute Lymphocytes 0.7 10^3/uL (1.2-3.4); Absolute Monocytes 0.4 10^3/uL (0.1-0.6); Hematocrit 30.1 % (39.0-52.0); Mean Corp Hgb Conc. 33.2 g/dL (33.0-37.0); Mean Corpuscular Hgb 30.3 pg (27.0-31.0); Mean Corpuscular Volume 91.2 fL (80.0-94.0); Mean Platelet Volume 9.1 fL (7.4-10.4); Platelet Count 200 10^3/uL (130-400); White Blood Cell Count 3.3 10^3/uL (4.8-10.8)
[2023-12-22] MEDS: GAMMAGARD 200 IV (10:05)
[2023-12-22] MEDS: GAMMAGARD 300 IV ×2 (11:07→12:33)
[2023-12-22 11:47] LABS: ALT (SGPT) 23 U/L (0-50); AST (SGOT) 33 U/L (17-59); Albumin 4.1 g/dl (3.5-5.0); Alkaline Phosphatase 86 U/L (38-126); Blood Urea Nitrogen 37 mg/dl (9-20); Calcium 9.2 mg/dl (8.4-10.2); Carbon Dioxide 27 mmol/L (22-30); Chloride 101 mmol/L (98-107); Estimated Creatinine Clearance 40 ml/min; Glucose 125 mg/dl (70-99); Potassium 3.9 mmol/L (3.5-5.1); Sodium 138 mmol/L (135-145); Total Bilirubin 0.5 mg/dl (0.2-1.3); Total Protein 7.5 g/dl (6.3-8.2); eGFR 37.35
[2023-12-22 11:55] LABS: Erythrocyte Sed Rate 89 mm/hour (0-20)
[2023-12-22 12:49] LABS: Folate > 20.0 ng/ml (2.76-20)
[2023-12-22 13:42] LABS: Creatine Phosphokinase 179 U/L (55-170)
[2023-12-23 10:57] LABS: Intact PTH 44.7 pg/ml (13.6-85.8)
[2024-01-05] VITALS (11 sets, daily range): BP systolic 137–155; BP diastolic 60–70; BMI 29.5
[2024-01-05 08:56] LABS: % Basophils 0.7 % (0-2); % Lymphocytes 17.2 % (20.5-51.1); % Monocytes 14.8 % (1.7-9.3); % Neutrophils 65.3 % (42.2-75.2); Absolute Eosinophils 0.1 10^3/uL (0-0.7); Absolute Lymphocytes 0.8 10^3/uL (1.2-3.4); Absolute Monocytes 0.7 10^3/uL (0.1-0.6); Hematocrit 31.7 % (39.0-52.0); Hemoglobin 10.5 g/dL (13.0-18.0); Mean Corp Hgb Conc. 33.1 g/dL (33.0-37.0); Mean Corpuscular Hgb 29.9 pg (27.0-31.0); Mean Corpuscular Volume 90.3 fL (80.0-94.0); Mean Platelet Volume 8.5 fL (7.4-10.4); Platelet Count 192 10^3/uL (130-400); Red Blood Cell Count 3.51 10^6/uL (4.70-6.10); Red Cell Dist. Width 14.9 % (11.5-14.5); White Blood Cell Count 4.5 10^3/uL (4.8-10.8)
[2024-01-05] MEDS: TYLENOL 650 MG PO (08:56)
[2024-01-05] MEDS: NSS 250 IV (08:57)
[2024-01-05] MEDS: GAMMAGARD 50 IV (08:57)
[2024-01-05] MEDS: GAMMAGARD 200 IV (09:45)
[2024-01-05 10:19] LABS: ALT (SGPT) 20 U/L (0-50); AST (SGOT) 32 U/L (17-59); Albumin 4.2 g/dl (3.5-5.0); Alkaline Phosphatase 89 U/L (38-126); Blood Urea Nitrogen 39 mg/dl (9-20); Calcium 9.4 mg/dl (8.4-10.2); Carbon Dioxide 26 mmol/L (22-30); Chloride 99 mmol/L (98-107); Creatine Phosphokinase 177 U/L (55-170); Estimated Creatinine Clearance 36 ml/min; Glucose 107 mg/dl (70-99); Potassium 3.9 mmol/L (3.5-5.1); Sodium 139 mmol/L (135-145); Total Bilirubin 0.5 mg/dl (0.2-1.3); Total Protein 7.8 g/dl (6.3-8.2); eGFR 32.91
[2024-01-05] MEDS: GAMMAGARD 300 IV ×2 (10:52→12:16)
[2024-01-05 10:53] LABS: Vitamin B12 900 pg/ml (239-931)
[2024-01-05 11:10] LABS: Erythrocyte Sed Rate 52 mm/hour (0-20)
== END 2024-01-06 12:48 | disposition home or self-care (01) ==
LOC: OID 08:28
PROVIDERS: Specialist; ATTENDING PHYSICIAN Psychiatry & Neurology Neurology; FAMILY PHYSICIAN Family Medicine
DX: G61.81 Chronic inflammatory demyelinating polyneuritis (principal)
CPT/HCPCS: 36415; 80053; 82550; 82607; 82746; 83970; 85025; 85652; 96361; 96365; 96366; J1569

== ENCOUNTER 2024-02-02 08:22 | Outpatient (RCR) | payer MEDICARE, SELFPAY ==
[2024-01-19] VITALS (13 sets, daily range): BP systolic 130–151; BP diastolic 51–61; BMI 29.7
[2024-01-19] MEDS: TYLENOL 650 MG PO (09:05)
[2024-01-19] MEDS: GAMMAGARD 200 IV (09:06)
[2024-01-19 10:07] LABS: ALT (SGPT) 20 U/L (0-50); AST (SGOT) 34 U/L (17-59); Albumin 4.2 g/dl (3.5-5.0); Alkaline Phosphatase 89 U/L (38-126); Blood Urea Nitrogen 44 mg/dl (9-20); Calcium 9.6 mg/dl (8.4-10.2); Carbon Dioxide 27 mmol/L (22-30); Chloride 100 mmol/L (98-107); Creatine Phosphokinase 263 U/L (55-170); Estimated Creatinine Clearance 37 ml/min; Glucose 112 mg/dl (70-99); Potassium 4.1 mmol/L (3.5-5.1); Sodium 140 mmol/L (135-145); Total Bilirubin 0.5 mg/dl (0.2-1.3); Total Protein 7.7 g/dl (6.3-8.2)
[2024-01-19] MEDS: GAMMAGARD 300 IV ×3 (10:43→13:27)
[2024-01-19 11:13] LABS: Folate > 20.0 ng/ml (2.76-20); Vitamin B12 769 pg/ml (239-931)
[2024-01-19 11:55] LABS: Erythrocyte Sed Rate 126 mm/hour (0-20)
[2024-01-19 12:01] LABS: % Basophils 1.4 % (0-2); % Immature Granulocytes 0.3 % (0-0.5); % Lymphocytes 21.4 % (20.5-51.1); % Monocytes 12.2 % (1.7-9.3); % Neutrophils 61.7 % (42.2-75.2); Absolute Basophils 0.1 10^3/uL (0-0.2); Absolute Eosinophils 0.1 10^3/uL (0-0.7); Absolute Lymphocytes 0.8 10^3/uL (1.2-3.4); Absolute Monocytes 0.5 10^3/uL (0.1-0.6); Absolute Neutrophils 2.3 10^3/uL (1.4-6.5); Hemoglobin 10.2 g/dL (13.0-18.0); Mean Corpuscular Hgb 29.7 pg (27.0-31.0); Mean Corpuscular Volume 87.2 fL (80.0-94.0); Mean Platelet Volume 9.7 fL (7.4-10.4); Nucleated Red Blood Cells % 0 % (-); Platelet Count 228 10^3/uL (130-400); Red Blood Cell Count 3.44 10^6/uL (4.70-6.10); Red Cell Dist. Width 15.1 % (11.5-14.5); White Blood Cell Count 3.7 10^3/uL (4.8-10.8)
[2024-02-02] VITALS (14 sets, daily range): BP systolic 126–149; BP diastolic 55–72; BMI 31.4
[2024-02-02 09:06] LABS: % Basophils 0.5 % (0-2); % Eosinophils 2.8 % (0-6); % Immature Granulocytes 0.3 % (0-0.5); % Lymphocytes 22.2 % (20.5-51.1); % Monocytes 13.1 % (1.7-9.3); % Neutrophils 61.1 % (42.2-75.2); Absolute Eosinophils 0.1 10^3/uL (0-0.7); Absolute Lymphocytes 0.9 10^3/uL (1.2-3.4); Absolute Monocytes 0.5 10^3/uL (0.1-0.6); Absolute Neutrophils 2.4 10^3/uL (1.4-6.5); Hemoglobin 10.1 g/dL (13.0-18.0); Mean Corp Hgb Conc. 33.7 g/dL (33.0-37.0); Mean Corpuscular Hgb 29.8 pg (27.0-31.0); Mean Corpuscular Volume 88.5 fL (80.0-94.0); Platelet Count 183 10^3/uL (130-400); Red Blood Cell Count 3.39 10^6/uL (4.70-6.10); Red Cell Dist. Width 15.3 % (11.5-14.5); White Blood Cell Count 3.9 10^3/uL (4.8-10.8)
[2024-02-02] MEDS: TYLENOL 650 MG PO (09:07)
[2024-02-02] MEDS: GAMMAGARD 200 IV (09:08)
[2024-02-02 10:13] LABS: ALT (SGPT) 24 U/L (0-50); AST (SGOT) 32 U/L (17-59); Albumin 4.2 g/dl (3.5-5.0); Alkaline Phosphatase 93 U/L (38-126); Blood Urea Nitrogen 49 mg/dl (9-20); Calcium 9.5 mg/dl (8.4-10.2); Carbon Dioxide 24 mmol/L (22-30); Chloride 101 mmol/L (98-107); Creatine Phosphokinase 210 U/L (55-170); Estimated Creatinine Clearance 40 ml/min; Glucose 105 mg/dl (70-99); Potassium 4.5 mmol/L (3.5-5.1); Sodium 141 mmol/L (135-145); Total Bilirubin 0.5 mg/dl (0.2-1.3); Total Protein 7.9 g/dl (6.3-8.2)
[2024-02-02] MEDS: GAMMAGARD 300 IV ×3 (10:55→13:35)
[2024-02-02 11:26] LABS: Folate > 20.0 ng/ml (2.76-20); Vitamin B12 872 pg/ml (239-931)
[2024-02-02 12:26] LABS: Erythrocyte Sed Rate > 145 mm/hour (0-20)
== END 2024-02-03 10:53 | disposition home or self-care (01) ==
LOC: OID 08:22
PROVIDERS: ATTENDING PHYSICIAN Psychiatry & Neurology Neurology; FAMILY PHYSICIAN Family Medicine; OTHER PHYSICIAN Specialist
DX: G61.81 Chronic inflammatory demyelinating polyneuritis (principal)
CPT/HCPCS: 36415; 80053; 82550; 82607; 82746; 85025; 85652; 96365; 96366; J1569

== ENCOUNTER 2024-03-15 08:28 | Outpatient (RCR) | payer MEDICARE, SELFPAY ==
[2024-02-16] VITALS (14 sets, daily range): BP systolic 136–181; BP diastolic 60–79; BMI 29.9
[2024-02-16] MEDS: TYLENOL 650 MG PO (09:05)
[2024-02-16] MEDS: GAMMAGARD 200 IV (09:06)
[2024-02-16 10:02] LABS: % Basophils 0.8 % (0-2); % Eosinophils 0.6 % (0-6); % Immature Granulocytes 1.1 % (0-0.5); % Monocytes 10.3 % (1.7-9.3); % Neutrophils 71.2 % (42.2-75.2); Absolute Immature Granulocytes 0.1 10^3/uL (0-0.05); Absolute Lymphocytes 0.8 10^3/uL (1.2-3.4); Absolute Monocytes 0.5 10^3/uL (0.1-0.6); Absolute Neutrophils 3.7 10^3/uL (1.4-6.5); Hematocrit 29.1 % (39.0-52.0); Hemoglobin 9.9 g/dL (13.0-18.0); Mean Corpuscular Hgb 30.4 pg (27.0-31.0); Mean Corpuscular Volume 89.3 fL (80.0-94.0); Mean Platelet Volume 9.7 fL (7.4-10.4); Nucleated Red Blood Cells % 0 % (-); Platelet Count 238 10^3/uL (130-400); Red Blood Cell Count 3.26 10^6/uL (4.70-6.10); Red Cell Dist. Width 16.3 % (11.5-14.5); White Blood Cell Count 5.2 10^3/uL (4.8-10.8)
[2024-02-16] MEDS: GAMMAGARD 300 IV ×3 (10:42→13:31)
[2024-02-16 10:52] LABS: ALT (SGPT) 37 U/L (0-50); AST (SGOT) 34 U/L (17-59); Albumin 4.2 g/dl (3.5-5.0); Alkaline Phosphatase 104 U/L (38-126); Blood Urea Nitrogen 46 mg/dl (9-20); Calcium 9.5 mg/dl (8.4-10.2); Carbon Dioxide 24 mmol/L (22-30); Chloride 102 mmol/L (98-107); Creatine Phosphokinase 122 U/L (55-170); Estimated Creatinine Clearance 40 ml/min; Glucose 124 mg/dl (70-99); Potassium 4.1 mmol/L (3.5-5.1); Sodium 141 mmol/L (135-145); Total Bilirubin 0.5 mg/dl (0.2-1.3); Total Protein 7.8 g/dl (6.3-8.2); eGFR 37.35
[2024-02-16 10:59] LABS: Erythrocyte Sed Rate 121 mm/hour (0-20)
[2024-02-16 11:53] LABS: Folate > 20.0 ng/ml (2.76-20); Vitamin B12 989 pg/ml (239-931)
[2024-03-01] VITALS (14 sets, daily range): BP systolic 125–147; BP diastolic 9–67; BMI 30.3
[2024-03-01 09:02] LABS: % Basophils 0.6 % (0-2); % Eosinophils 2.9 % (0-6); % Immature Granulocytes 0.3 % (0-0.5); % Lymphocytes 20.7 % (20.5-51.1); % Monocytes 13.5 % (1.7-9.3); Absolute Eosinophils 0.1 10^3/uL (0-0.7); Absolute Lymphocytes 0.7 10^3/uL (1.2-3.4); Absolute Monocytes 0.5 10^3/uL (0.1-0.6); Absolute Neutrophils 2.2 10^3/uL (1.4-6.5); Hematocrit 29.6 % (39.0-52.0); Hemoglobin 9.8 g/dL (13.0-18.0); Mean Corp Hgb Conc. 33.1 g/dL (33.0-37.0); Mean Corpuscular Hgb 30.2 pg (27.0-31.0); Mean Corpuscular Volume 91.1 fL (80.0-94.0); Platelet Count 155 10^3/uL (130-400); Red Blood Cell Count 3.25 10^6/uL (4.70-6.10); Red Cell Dist. Width 15.9 % (11.5-14.5); White Blood Cell Count 3.5 10^3/uL (4.8-10.8)
[2024-03-01] MEDS: TYLENOL 650 MG PO (09:04)
[2024-03-01] MEDS: GAMMAGARD 200 IV (09:05)
[2024-03-01 10:40] LABS: ALT (SGPT) 26 U/L (0-50); Albumin 3.9 g/dl (3.5-5.0); Alkaline Phosphatase 90 U/L (38-126); Blood Urea Nitrogen 39 mg/dl (9-20); Calcium 9.2 mg/dl (8.4-10.2); Carbon Dioxide 25 mmol/L (22-30); Chloride 103 mmol/L (98-107); Creatine Phosphokinase 251 U/L (55-170); Estimated Creatinine Clearance 40 ml/min; Glucose 94 mg/dl (70-99); Potassium 4.4 mmol/L (3.5-5.1); Sodium 139 mmol/L (135-145); Total Bilirubin 0.4 mg/dl (0.2-1.3); Total Protein 7.4 g/dl (6.3-8.2); eGFR 37.35
[2024-03-01] MEDS: GAMMAGARD 300 IV ×3 (10:47→13:40)
[2024-03-01 10:48] LABS: AST (SGOT) 29 U/L (17-59)
[2024-03-01 11:37] LABS: Folate > 20.0 ng/ml (2.76-20); Vitamin B12 816 pg/ml (239-931)
[2024-03-01 11:55] LABS: Erythrocyte Sed Rate 104 mm/hour (0-20)
[2024-03-15] VITALS (14 sets, daily range): BP systolic 127–160; BP diastolic 46–64
[2024-03-15] MEDS: TYLENOL 650 MG PO (08:52)
[2024-03-15] MEDS: GAMMAGARD 200 IV (08:53)
[2024-03-15] MEDS: GAMMAGARD 300 IV ×3 (10:31→13:20)
== END 2024-03-16 09:44 | disposition home or self-care (01) ==
LOC: OID 08:28
PROVIDERS: ATTENDING PHYSICIAN Psychiatry & Neurology Neurology; FAMILY PHYSICIAN Family Medicine; OTHER PHYSICIAN Specialist
DX: G61.81 Chronic inflammatory demyelinating polyneuritis (principal)
CPT/HCPCS: 36415; 80053; 82550; 82607; 82746; 85025; 85652; 96365; 96366; J1569

== ENCOUNTER 2024-03-29 08:27 | Outpatient (RCR) | payer MEDICARE, SELFPAY ==
[2024-03-29] VITALS (13 sets, daily range): BP systolic 134–158; BP diastolic 48–63; BMI 29.6
[2024-03-29] MEDS: TYLENOL 650 MG PO (08:59)
[2024-03-29] MEDS: GAMMAGARD 200 IV (09:01)
[2024-03-29 09:03] LABS: % Basophils 0.8 % (0-2); % Eosinophils 2.7 % (0-6); % Immature Granulocytes 0.3 % (0-0.5); % Lymphocytes 18.6 % (20.5-51.1); % Monocytes 12.5 % (1.7-9.3); % Neutrophils 65.1 % (42.2-75.2); Absolute Eosinophils 0.1 10^3/uL (0-0.7); Absolute Lymphocytes 0.7 10^3/uL (1.2-3.4); Absolute Monocytes 0.5 10^3/uL (0.1-0.6); Absolute Neutrophils 2.5 10^3/uL (1.4-6.5); Hematocrit 28.5 % (39.0-52.0); Hemoglobin 9.4 g/dL (13.0-18.0); Mean Corpuscular Hgb 29.7 pg (27.0-31.0); Mean Corpuscular Volume 90.2 fL (80.0-94.0); Mean Platelet Volume 9.1 fL (7.4-10.4); Platelet Count 219 10^3/uL (130-400); Red Blood Cell Count 3.16 10^6/uL (4.70-6.10); Red Cell Dist. Width 15.7 % (11.5-14.5); White Blood Cell Count 3.8 10^3/uL (4.8-10.8)
[2024-03-29 10:19] LABS: Erythrocyte Sed Rate > 145 mm/hour (0-20)
[2024-03-29 10:25] LABS: ALT (SGPT) 26 U/L (0-50); AST (SGOT) 32 U/L (17-59); Albumin 4.1 g/dl (3.5-5.0); Alkaline Phosphatase 94 U/L (38-126); Blood Urea Nitrogen 39 mg/dl (9-20); Calcium 9.4 mg/dl (8.4-10.2); Carbon Dioxide 27 mmol/L (22-30); Chloride 102 mmol/L (98-107); Creatine Phosphokinase 190 U/L (55-170); Glucose 104 mg/dl (70-99); Potassium 4.1 mmol/L (3.5-5.1); Sodium 140 mmol/L (135-145); Total Bilirubin 0.4 mg/dl (0.2-1.3); Total Protein 7.8 g/dl (6.3-8.2)
[2024-03-29] MEDS: GAMMAGARD 300 IV ×3 (10:36→13:20)
[2024-03-29 11:12] LABS: Folate > 20.0 ng/ml (2.76-20); Vitamin B12 > 1000 pg/ml (239-931)
== END 2024-04-16 23:59 | disposition home or self-care (01) ==
LOC: OID 08:27
PROVIDERS: ATTENDING PHYSICIAN Psychiatry & Neurology Neurology; FAMILY PHYSICIAN Family Medicine; OTHER PHYSICIAN Specialist
DX: G61.81 Chronic inflammatory demyelinating polyneuritis (principal)
CPT/HCPCS: 36415; 80053; 82550; 82607; 82746; 85025; 85652; 96365; 96366; J1569

== ENCOUNTER 2024-05-17 10:41 | Outpatient (RCR) | payer MEDICARE, SELFPAY ==
[2024-04-26 11:05] VITALS: BP 167/61
[2024-04-26] MEDS: VYVGART HYTRULO 1,008MG-11,200 1008 MG SC (11:06)
[2024-05-03 11:09] VITALS: BP 152/53
[2024-05-03] MEDS: VYVGART HYTRULO 1,008MG-11,200 1008 MG SC (11:14)
[2024-05-10 10:56] VITALS: BP 165/72
[2024-05-10] MEDS: VYVGART HYTRULO 1,008MG-11,200 1008 MG SC (11:12)
[2024-05-10 11:50] VITALS: BP 145/58
[2024-05-17 10:45] VITALS: BP 166/60
[2024-05-17] MEDS: VYVGART HYTRULO 1,008MG-11,200 1008 MG SC (11:02)
== END 2024-05-17 23:59 | disposition home or self-care (01) ==
LOC: OID 10:41
PROVIDERS: ATTENDING PHYSICIAN Psychiatry & Neurology Neurology; FAMILY PHYSICIAN Family Medicine; OTHER PHYSICIAN Specialist
DX: G61.81 Chronic inflammatory demyelinating polyneuritis (principal)
CPT/HCPCS: 96372; J9334

== ENCOUNTER 2024-05-31 10:43 | Outpatient (RCR) | payer MEDICARE, SELFPAY ==
[2024-05-24 11:00] VITALS: BP 171/71
[2024-05-24] MEDS: VYVGART HYTRULO 1,008MG-11,200 1008 MG SC (11:10)
[2024-05-24 11:45] VITALS: BP 138/57
[2024-05-31 11:00] VITALS: BP 163/62
[2024-05-31] MEDS: VYVGART HYTRULO 1,008MG-11,200 1008 MG SC (11:11)
== END 2024-06-08 14:06 | disposition home or self-care (01) ==
LOC: OID 10:43
PROVIDERS: ATTENDING PHYSICIAN Psychiatry & Neurology Neurology; FAMILY PHYSICIAN Family Medicine; OTHER PHYSICIAN Specialist
DX: G61.81 Chronic inflammatory demyelinating polyneuritis (principal)
CPT/HCPCS: 96372; J9334

== ENCOUNTER 2024-06-14 10:44 | Outpatient (RCR) | payer MEDICARE, SELFPAY ==
[2024-06-07 11:00] VITALS: BP 159/67
[2024-06-07] MEDS: VYVGART HYTRULO 1,008MG-11,200 1008 MG SC (11:15)
[2024-06-14 11:18] LABS: % Basophils 0.5 % (0-2); % Eosinophils 3.8 % (0-6); % Immature Granulocytes 0.4 % (0-0.5); % Lymphocytes 15.2 % (20.5-51.1); % Neutrophils 67.1 % (42.2-75.2); Absolute Eosinophils 0.2 10^3/uL (0-0.7); Absolute Lymphocytes 0.8 10^3/uL (1.2-3.4); Absolute Monocytes 0.7 10^3/uL (0.1-0.6); Absolute Neutrophils 3.7 10^3/uL (1.4-6.5); Hematocrit 35.1 % (39.0-52.0); Hemoglobin 11.5 g/dL (13.0-18.0); Mean Corp Hgb Conc. 32.8 g/dL (33.0-37.0); Mean Corpuscular Hgb 28.6 pg (27.0-31.0); Mean Corpuscular Volume 87.3 fL (80.0-94.0); Mean Platelet Volume 8.7 fL (7.4-10.4); Platelet Count 205 10^3/uL (130-400); Red Blood Cell Count 4.02 10^6/uL (4.70-6.10); Red Cell Dist. Width 14.8 % (11.5-14.5); White Blood Cell Count 5.5 10^3/uL (4.8-10.8)
[2024-06-14 11:29] VITALS: BP 149/65
[2024-06-14] MEDS: VYVGART HYTRULO 1,008MG-11,200 1008 MG SC (11:37)
[2024-06-14 11:51] LABS: Nucleated Red Blood Cells % 0 % (-); Reticulocyte Count 0.7 % (0.4-2.8)
[2024-06-14 12:20] VITALS: BP 135/57
[2024-06-14 12:22] LABS: ALT (SGPT) 25 U/L (0-50); AST (SGOT) 26 U/L (17-59); Albumin 4.6 g/dl (3.5-5.0); Alkaline Phosphatase 95 U/L (38-126); Blood Urea Nitrogen 39 mg/dl (9-20); Calcium 9.7 mg/dl (8.4-10.2); Carbon Dioxide 25 mmol/L (22-30); Chloride 101 mmol/L (98-107); Glucose 111 mg/dl (70-99); HDL Cholesterol 45 mg/dl; Iron 56 ug/dl (49-181); LDL Cholesterol, Calculated 48 mg/dl; Potassium 4.8 mmol/L (3.5-5.1); Sodium 139 mmol/L (135-145); Total Bilirubin 0.2 mg/dl (0.2-1.3); Total Cholesterol 118 mg/dl (50-199); Total Protein 6.5 g/dl (6.3-8.2); Triglyceride 125 mg/dl (10-149); Very Low Density Lipoprotein 25 mg/dl (0-30); eGFR 34.79
[2024-06-14 12:31] LABS: Percent Saturation 18 % (20-50); Total Iron Binding Capacity 311 ug/dl (261-462)
[2024-06-14 12:53] LABS: TSH 2.75 uIU/ml (0.47-4.68)
[2024-06-14 12:57] LABS: Ferritin 24.4 ng/ml (17.9-464.0)
[2024-06-15 17:12] LABS: LD-1 19 % (14-27); LD-2 29 % (29-42); LD-3 27 % (18-30); LD-4 13 % (8-15); LD-5 12 % (6-23); LDH, Total (Sendout) 168 U/L (105-230)
== END 2024-06-15 09:09 | disposition home or self-care (01) ==
LOC: OID 10:44
PROVIDERS: ATTENDING PHYSICIAN Psychiatry & Neurology Neurology; FAMILY PHYSICIAN Family Medicine; OTHER PHYSICIAN Specialist
DX: G61.81 Chronic inflammatory demyelinating polyneuritis (principal)
CPT/HCPCS: 36415; 80053; 80061; 82728; 83540; 83550; 83615; 83625; 84443; 85025; 85045; 96372; J9334

== ENCOUNTER → 2024-07-11 12:57 | Outpatient (REF) | payer MEDICARE, SELFPAY | LOC: RAD 12:57 | PROVIDERS: ATTENDING PHYSICIAN Psychiatry & Neurology Neurology; FAMILY PHYSICIAN Family Medicine | DX: M43.02 Spondylolysis, cervical region (principal) | CPT/HCPCS: 72052 ==

== ENCOUNTER 2024-07-12 10:42 | Outpatient (RCR) | payer MEDICARE, SELFPAY ==
[2024-06-21 10:59] VITALS: BP 162/57
[2024-06-21] MEDS: VYVGART HYTRULO 1,008MG-11,200 1008 MG SC (11:22)
[2024-06-21 12:01] VITALS: BP 140/56
[2024-06-28 10:58] VITALS: BP 167/57
[2024-06-28] MEDS: VYVGART HYTRULO 1,008MG-11,200 1008 MG SC (11:11)
[2024-07-05 10:56] VITALS: BP 153/65
[2024-07-05] MEDS: VYVGART HYTRULO 1,008MG-11,200 1008 MG SC (11:04)
[2024-07-05 11:40] VITALS: BP 135/62
[2024-07-12 10:50] VITALS: BP 158/56
[2024-07-12] MEDS: VYVGART HYTRULO 1,008MG-11,200 1008 MG SC (10:58)
[2024-07-12 11:28] LABS: % Basophils 0.7 % (0-2); % Eosinophils 4.6 % (0-6); % Immature Granulocytes 0.2 % (0-0.5); % Lymphocytes 13.8 % (20.5-51.1); % Monocytes 10.5 % (1.7-9.3); % Neutrophils 70.2 % (42.2-75.2); Absolute Eosinophils 0.3 10^3/uL (0-0.7); Absolute Lymphocytes 0.8 10^3/uL (1.2-3.4); Absolute Monocytes 0.6 10^3/uL (0.1-0.6); Absolute Neutrophils 3.8 10^3/uL (1.4-6.5); Hematocrit 35.1 % (39.0-52.0); Hemoglobin 11.4 g/dL (13.0-18.0); Mean Corp Hgb Conc. 32.5 g/dL (33.0-37.0); Mean Corpuscular Volume 86.2 fL (80.0-94.0); Mean Platelet Volume 8.6 fL (7.4-10.4); Platelet Count 205 10^3/uL (130-400); Red Blood Cell Count 4.07 10^6/uL (4.70-6.10); Red Cell Dist. Width 15.1 % (11.5-14.5); White Blood Cell Count 5.4 10^3/uL (4.8-10.8)
[2024-07-12 11:56] LABS: Nucleated Red Blood Cells % 0 % (-)
[2024-07-12 12:11] LABS: ALT (SGPT) 25 U/L (0-50); AST (SGOT) 23 U/L (17-59); Albumin 4.5 g/dl (3.5-5.0); Alkaline Phosphatase 88 U/L (38-126); Blood Urea Nitrogen 42 mg/dl (9-20); Carbon Dioxide 24 mmol/L (22-30); Chloride 103 mmol/L (98-107); Creatine Phosphokinase 261 U/L (55-170); Glucose 119 mg/dl (70-99); Potassium 4.6 mmol/L (3.5-5.1); Sodium 138 mmol/L (135-145); Total Bilirubin 0.6 mg/dl (0.2-1.3); Total Protein 6.4 g/dl (6.3-8.2); eGFR 37.12
[2024-07-12 13:16] LABS: Folate > 20.0 ng/ml (2.76-20); Vitamin B12 981 pg/ml (239-931)
[2024-07-12 13:59] LABS: Erythrocyte Sed Rate 15 mm/hour (0-20)
== END 2024-07-13 10:42 | disposition home or self-care (01) ==
LOC: OID 10:42
PROVIDERS: ATTENDING PHYSICIAN Psychiatry & Neurology Neurology; FAMILY PHYSICIAN Family Medicine; OTHER PHYSICIAN Specialist
DX: G61.81 Chronic inflammatory demyelinating polyneuritis (principal)
CPT/HCPCS: 80053; 82550; 82607; 82746; 85025; 85652; 96372; J9334

== ENCOUNTER → 2024-07-13 10:55 | Outpatient (REF) | payer MEDICARE, SELFPAY | LOC: EMG 10:55 | PROVIDERS: ATTENDING PHYSICIAN Psychiatry & Neurology Neurology; FAMILY PHYSICIAN Family Medicine | DX: G61.81 Chronic inflammatory demyelinating polyneuritis (principal) | CPT/HCPCS: 95886; 95909 ==

== ENCOUNTER 2024-08-09 10:43 | Outpatient (RCR) | payer MEDICARE, SELFPAY ==
[2024-07-19 11:09] VITALS: BP 163/64
[2024-07-19] MEDS: VYVGART HYTRULO 1,008MG-11,200 1008 MG SC (11:20)
[2024-07-19 11:30] VITALS: BP 140/48
[2024-07-19 12:10] VITALS: BP 149/61
[2024-07-26 10:54] VITALS: BP 163/91
[2024-07-26] MEDS: VYVGART HYTRULO 1,008MG-11,200 1008 MG SC (10:59)
[2024-08-02 11:06] VITALS: BP 158/67
[2024-08-02] MEDS: VYVGART HYTRULO 1,008MG-11,200 1008 MG SC (11:13)
[2024-08-02 11:50] VITALS: BP 143/61
[2024-08-09 10:52] VITALS: BP 163/57
[2024-08-09] MEDS: VYVGART HYTRULO 1,008MG-11,200 1008 MG SC (11:01)
[2024-08-09 11:26] VITALS: BP 134/50
== END 2024-08-10 10:15 | disposition home or self-care (01) ==
LOC: OID 10:43
PROVIDERS: ATTENDING PHYSICIAN Psychiatry & Neurology Neurology; FAMILY PHYSICIAN Family Medicine; OTHER PHYSICIAN Specialist
DX: G61.81 Chronic inflammatory demyelinating polyneuritis (principal)
CPT/HCPCS: 96372; J9334

== ENCOUNTER 2024-09-13 10:34 | Outpatient (RCR) | payer MEDICARE, SELFPAY ==
[2024-08-16] MEDS: VYVGART HYTRULO 1,008MG-11,200 1008 MG SC (11:19)
[2024-08-23] MEDS: VYVGART HYTRULO 1,008MG-11,200 1008 MG SC (11:10)
[2024-08-30] MEDS: VYVGART HYTRULO 1,008MG-11,200 1008 MG SC (11:13)
[2024-09-06] MEDS: VYVGART HYTRULO 1,008MG-11,200 1008 MG SC (11:04)
[2024-09-13] MEDS: VYVGART HYTRULO 1,008MG-11,200 1008 MG SC (11:08)
== END 2024-09-14 08:06 | disposition home or self-care (01) ==
LOC: OID 10:34
PROVIDERS: ATTENDING PHYSICIAN Psychiatry & Neurology Neurology; FAMILY PHYSICIAN Family Medicine; OTHER PHYSICIAN Specialist
DX: G61.81 Chronic inflammatory demyelinating polyneuritis (principal)
CPT/HCPCS: 96372; J9334

== ENCOUNTER → 2024-09-19 13:33 | Outpatient (REF) | payer MEDICARE, SELFPAY | LOC: DHSLP 13:33 | PROVIDERS: ATTENDING PHYSICIAN Internal Medicine Critical Care Medicine; FAMILY PHYSICIAN Family Medicine | DX: G47.33 Obstructive sleep apnea (adult) (pediatric) (principal); R09.02 Hypoxemia | CPT/HCPCS: 95800 ==

== ENCOUNTER 2024-10-11 10:51 | Outpatient (RCR) | payer MEDICARE, SELFPAY ==
[2024-09-20 10:52] VITALS: BP 142/52
[2024-09-20] MEDS: VYVGART HYTRULO 1,008MG-11,200 1008 MG SC (11:05)
[2024-09-20 11:45] VITALS: BP 153/57
[2024-09-27 11:08] VITALS: BP 148/61
[2024-09-27] MEDS: VYVGART HYTRULO 1,008MG-11,200 1008 MG SC (11:18)
[2024-10-04 11:01] VITALS: BP 135/48
[2024-10-04] MEDS: VYVGART HYTRULO 1,008MG-11,200 1008 MG SC (11:13)
[2024-10-04 11:45] VITALS: BP 144/51
[2024-10-11 11:06] VITALS: BP 162/62
[2024-10-11] MEDS: VYVGART HYTRULO 1,008MG-11,200 1008 MG SC (11:13)
[2024-10-11 11:55] VITALS: BP 126/59
== END 2024-10-12 10:39 | disposition home or self-care (01) ==
LOC: OID 10:51
PROVIDERS: ATTENDING PHYSICIAN Psychiatry & Neurology Neurology; FAMILY PHYSICIAN Family Medicine; OTHER PHYSICIAN Specialist
DX: G61.81 Chronic inflammatory demyelinating polyneuritis (principal)
CPT/HCPCS: 96372; J9334

== ENCOUNTER 2024-11-08 10:45 | Outpatient (RCR) | payer MEDICARE, SELFPAY ==
[2024-10-18 10:42] VITALS: BP 155/51
[2024-10-18] MEDS: VYVGART HYTRULO 1,008MG-11,200 1008 MG SC (10:53)
[2024-10-25] MEDS: VYVGART HYTRULO 1,008MG-11,200 1008 MG SC (13:17)
[2024-10-25 13:30] VITALS: BP 156/57
[2024-11-01 14:06] VITALS: BP 175/66
[2024-11-01] MEDS: VYVGART HYTRULO 1,008MG-11,200 1008 MG SC (14:24)
[2024-11-01 15:00] VITALS: BP 150/67
[2024-11-08 11:14] VITALS: BP 130/51
[2024-11-08] MEDS: VYVGART HYTRULO 1,008MG-11,200 1008 MG SC (11:15)
== END 2024-11-09 08:53 | disposition home or self-care (01) ==
LOC: OID 10:45
PROVIDERS: ATTENDING PHYSICIAN Psychiatry & Neurology Neurology; FAMILY PHYSICIAN Family Medicine; OTHER PHYSICIAN Specialist
DX: G61.81 Chronic inflammatory demyelinating polyneuritis (principal)
CPT/HCPCS: 96372; J9334

== ENCOUNTER 2024-12-13 10:47 | Outpatient (RCR) | payer MEDICARE, SELFPAY ==
[2024-11-15 10:50] VITALS: BP 171/57
[2024-11-15] MEDS: VYVGART HYTRULO 1,008MG-11,200 1008 MG SC (11:00)
[2024-11-22 11:14] VITALS: BP 139/62
[2024-11-22] MEDS: VYVGART HYTRULO 1,008MG-11,200 1008 MG SC (11:18)
[2024-11-29 10:45] VITALS: BP 172/49
[2024-11-29] MEDS: VYVGART HYTRULO 1,008MG-11,200 1008 MG SC (11:11)
[2024-11-29 12:06] VITALS: BP 150/45
[2024-12-06 10:50] VITALS: BP 162/56
[2024-12-06] MEDS: VYVGART HYTRULO 1,008MG-11,200 1008 MG SC (11:17)
[2024-12-06 11:45] VITALS: BP 142/55
[2024-12-13 11:06] VITALS: BP 130/51
[2024-12-13] MEDS: VYVGART HYTRULO 1,008MG-11,200 1008 MG SC (11:14)
== END 2024-12-15 23:59 | disposition home or self-care (01) ==
LOC: OID 10:47
PROVIDERS: ATTENDING PHYSICIAN Psychiatry & Neurology Neurology; FAMILY PHYSICIAN Family Medicine; OTHER PHYSICIAN Specialist
DX: G61.81 Chronic inflammatory demyelinating polyneuritis (principal)
CPT/HCPCS: 96372; J9334

== ENCOUNTER 2024-12-22 08:39 | Inpatient (IN) | payer MEDICARE, SELFPAY ==
--- NOTE | 2024-12-02 15:15 | CM ---
CM reviewed medical records. Patient lives independently with . Patient does not have a history of VN, SNF. Patient is active with his PCP. Patient plans to use [facility]. CM encouraged patient to make outpatient PT appoint.
PLAN: Home with outpatient PT.
[2024-12-07 11:18] LABS: Hematocrit 36.1 % (39.0-52.0); Hemoglobin 12.2 g/dL (13.0-18.0); Mean Corp Hgb Conc. 33.8 g/dL (33.0-37.0); Mean Corpuscular Volume 88.5 fL (80.0-94.0); Platelet Count 217 10^3/uL (130-400); Red Cell Dist. Width 13.2 % (11.5-14.5)
[2024-12-07 12:17] LABS: ALT (SGPT) 22 U/L (0-50); AST (SGOT) 22 U/L (17-59); Albumin 5.2 g/dl (3.5-5.0); Alkaline Phosphatase 95 U/L (38-126); Blood Urea Nitrogen 50 mg/dl (9-20); Calcium 9.9 mg/dl (8.4-10.2); Carbon Dioxide 25 mmol/L (22-30); Chloride 104 mmol/L (98-107); Glucose 121 mg/dl (70-99); Potassium 4.9 mmol/L (3.5-5.1); Sodium 140 mmol/L (135-145); Total Protein 7.0 g/dl (6.3-8.2); eGFR 26.28
[2024-12-07 12:24] LABS: Glycohemoglobin (HgbA1c) 5.6 % (4.0-5.6)
[2024-12-07 14:20] VITALS: BMI 31.6
[2024-12-16 08:14] VITALS: BMI 31.6
[2024-12-22] VITALS (19 sets, daily range): BP systolic 88–161; BP diastolic 40–75; PULSE 66
[2024-12-22] MEDS: TYLENOL 650 MG PO ×3 (08:58→20:04)
[2024-12-22] MEDS: CELEBREX 200 MG PO (08:58)
[2024-12-22] MEDS: NORMOSOL-R/PLASMALYTE-A 1000 IV (09:00)
[2024-12-22] MEDS: ROXICODONE 5 MG PO ×3 (12:45→20:04)
--- NOTE | 2024-12-22 13:00 | W.PN.UPDATE ---
Update Note
Progress Note Update
R hip OA s/p R ISAAC w/ Dr Lockett 12/22/24
DVT prophylaxis - ASA, b/l venous foot pumps
HTN - + parameters - monitor BP
JOVANNY, compliant with CPAP (setting 7) - monitor O2
- IS
- Resume CPAP HS
CKD stage 3B with recent HERBERT - minimize nephrotoxins
- IVF running. Will encourage oral hydration
- BMP in AM
Chronic constipation - add MOM HS to bowel regimen of Colace and Senna
Balance difficulties - on fall precautions
Chronic Inflammatory Demyelinating Polyneuropathy, on weekly Vyvgart - Vyvgart held prior to surgery
- Will continue to hold Vyvgart for 2 weeks post-surgery as incision heals. OK per neurologist
- Add Gabapentin HS
Urinary retention after remote parotid mass excision - monitor voids/PVRs
- Bladder scan/straight cath prn
- Continue Doxazosin
Pernicious anemia, on Vitamin B12 injections - non-invasive hgb in AM
- Consider Vit B12 injection during admission
HLD
Chronic venous insufficiency
Mild aortic regurgitation
Colon polyps
Diverticular bleed, 2010, exacerbated by excessive NSAID use
Hepatitis A, approximately 50 years ago
Multilevel degenerative disc disease
Lumbar stenosis
Scoliosis
Squamous and basal cell carcinoma, status post multiple Mohs
Head and neck cancer, status post excision of left-sided neck mass, 2019, and radiation
Benign parotid mass, status post left parotid mass excision
Folic acid deficiency
Macular degeneration
History of central retinal vein occlusion
Obesity, BMI 31.6
--- NOTE | 2024-12-22 13:04 | PTCARENOTE ---
Patient admitted from [facility] post total right hip arthroplasty.The patient is alert and oriented.he rates his pain at a 2 out of 10.neurovascular assessment is within normal limits and ongoing.Vital signs are stable.The dressing is intact without
drainage.The patient is in his bed with the call [email or web address] in reach.
[2024-12-22] MEDS: NSS 1000 IV (14:21)
[2024-12-22] MEDS: FOLVITE 1 MG PO (14:22)
[2024-12-22] MEDS: NORVASC PO (15:34)
[2024-12-22] MEDS: DIOVAN PO (15:34)
--- NOTE | 2024-12-22 16:35 | OR.RPT ---
Operative Report
Operative Report
Orthopaedic Surgery Operative Note
DATE OF OPERATION: 12/22/2024
PREOPERATIVE DIAGNOSES: Osteoarthritis, right hip
POSTOPERATIVE DIAGNOSES: Same
OPERATION PERFORMED: Right total hip arthroplasty.
SURGEON: Maynor Lockett MD
MRI TECHNOLOGIST: Randal Roberson PA-C who assisted with patient positioning and retraction
ANESTHESIA: Spinal
COMPLICATIONS: None.
ESTIMATED BLOOD LOSS: 50 mL.
DRAINS: None
SPECIMEN: None
FINDINGS: Advanced articular cartilage wear on the femoral head and acetabulum.
IMPLANTS:
Biomet G7 Acetabular Shell, cluster hole, size 62
Biomet G7 Highly Crosslinked PE Liner, neutral
Maxi M/L Taper femoral stem, size 15 with standard neck length and extended offset
Biolox Ceramic Head, size 40mm +0
INDICATIONS: The patient presented to my office with debilitating right hip pain due to osteoarthritis. We reviewed the natural history of this problem, as well as the risks, benefits, and alternatives of various treatment options. The patient
exhausted all nonoperative treatment options and wished to proceed with hip replacement surgery. The patient understood the risks which included, but were not limited to, bleeding, infection, failure to relieve pain, more pain than preop, damage to
blood vessels and nerves, need for reoperation, mechanical failure of the implants, wound healing problems, stiffness, instability, blood clot, pulmonary embolism, myocardial infarction, pneumonia, arrhythmia, CVA, and . The patient accepted
these risks and wished to proceed. All questions were answered, and informed consent was obtained.
PROCEDURE IN DETAIL: The patient was identified in the preoperative holding area. The right hip was identified as the operative site. The patient was taken in the operating room and transferred to the operative table. Spinal anesthesia was
performed. IV antibiotics and tranexamic acid were administered. The patient was placed in the lateral position with Stulberg hip positioners. Axillary roll was placed. The down leg was well padded. All bony prominences were well padded. The
operative limb was prepped and draped in the usual sterile fashion.
Time out was performed. A posterolateral approach to the hip was used. The skin incision was centered over the greater trochanter. This was taken down sharply through subcutaneous tissues. Meticulous hemostasis was achieved throughout the case with
electrocautery. We split the fascia wendy in line with skin incision. I split the gluteus amina bluntly. We cauterized all crossing vessels as we split it. I palpated the sciatic nerve and made sure it was well posterior in the operative field. It
was protected throughout the case.
I performed a partial bursectomy to identify the short external rotators. The gluteus medius and minimus were identified and retracted anteriorly. I incised the piriformis tendon and conjoint tendon at their insertions. These were tagged for later
repair. I then performed a trapezoidal capsulotomy. The edges were tagged for later repair. I referenced the cut edge of the capsular flap to 2 fixed points on the greater trochanter for assistance with recreation of limb length and offset. I then
dislocated the hip posteriorly. I performed a femoral neck osteotomy approximately 10 mm above the lesser trochanter, as per preoperative templating. The femoral head measured 55 mm in outer diameter. The distance between neck cut and the center of
femoral head was 42.5mm. I placed a curve hohmann retractor over the anterior lip of the acetabulum between the labrum and the anterior hip capsule. A second retractor was placed inferiorly just distal to the transverse acetabular ligament.
Circumferential view of the acetabulum was achieved. I incised the labrum and pulvinar with electrocautery. I started with a 55 mm reamer and reamed down to the medial wall. I then sequentially reamed up to a 61mm reamer. This gave a nice bed of
bleeding bone with excellent column support anteriorly and posteriorly. I impacted the acetabular shell in approximately 40 degrees of abduction and 20 degrees of anteversion. I matched the anteversion of the transverse acetabular ligament. I also
made sure that the anterior rim of the socket was not proud of the anterior wall to minimize the chance of iliopsoas tendinitis. I confirmed the cup was well-seated. I then impacted a neutral liner and confirmed it was well seated with the locking
mechanism.
On the femoral side, I use a box osteotome to open the proximal starting point. I found the canal with a Charnley awl and a lateralizing reamer. I then used the Maxi M/L taper broaches sequentially to prepare the femoral canal. The size 15 came to
a stop at the desired level and had excellent axial and rotational stability. We trialed with a trial ball head. The hip was taken through a complete range of motion. It was noted to be stable in extension without impingement. It was stable in the
position of sleep and in flexion with internal rotation. The limb length and offset were checked compared to the capsular flap and was appropriate. The measured length between the neck cut and center of the trial femoral head was 42.5mm.
I removed the trials. I impacted the femoral implant to match the [place] version. It had excellent axial and rotational stability. Trial ball head was placed, and I reduced the hip and took the hip through range of motion. There was no impingement
in external rotation and extension. Position of sleep was stable. At 90 degrees of flexion and slight adduction, the hip could be internally rotated to 90 degrees with no subluxation. I palpated the sciatic nerve, which was tension free and
unharmed. Based on our capsular flap measurement, we had restored the offset and leg length. The trial ball head was removed, and the final ball head was impacted onto a clean and dry Leo taper. The hip was reduced.
A dilute betadine soak was performed for approximately 3 minutes, and then the hip was copiously irrigated. I repaired the capsule, piraformis, and conjoint tendon with #2 Ethibond to drill holes in the greater trochanter. Local anesthetic was
injected. The fascia wendy was closed with #1 PDS in running fashion. The subcutaneous tissues were closed with 2-0 PDS in running fashion. The skin was reapproximated with 3-0 Monocryl subcuticular suture. I placed a Prineo dressing followed by a
Mepilex Ag dressing. The patient awoke from anesthesia without difficulty. Sponge and instrument counts were correct x2 at the end of the case.
I was present and participated in the entire procedure. The patient was sent to the recovery room in stable condition.
Benitez Lockett MD
[2024-12-22] MEDS: ASPIRIN 325 MG PO (17:54)
[2024-12-22] MEDS: KCL 20 MEQ PO (20:04)
[2024-12-22] MEDS: BACTROBAN 2% OINTMENT 1 APPLIC NASAL (20:05)
[2024-12-22] MEDS: SENOKOT 17.2 MG PO (20:05)
[2024-12-22] MEDS: COLACE 100 MG PO (20:05)
[2024-12-22] MEDS: NEURONTIN 200 MG PO (21:51)
[2024-12-22] MEDS: ANCEF 5 IV (21:51)
[2024-12-22] MEDS: CARDURA 6 MG PO (21:51)
[2024-12-22] MEDS: CRESTOR 5 MG PO (21:52)
[2024-12-22] MEDS: AFRIN NASAL SPRAY 1 SPRAYS NASAL (21:53)
[2024-12-23] MEDS: ROXICODONE 10 MG PO ×2 (00:38→06:17)
[2024-12-23] MEDS: TYLENOL 650 MG PO ×3 (00:38→12:52)
[2024-12-23 03:00] VITALS: BP 162/63
[2024-12-23] MEDS: TYLENOL PO (04:55)
[2024-12-23 06:49] LABS: Blood Urea Nitrogen 41 mg/dl (9-20); Calcium 9.1 mg/dl (8.4-10.2); Carbon Dioxide 23 mmol/L (22-30); Chloride 103 mmol/L (98-107); Estimated Creatinine Clearance 42 ml/min; Glucose 123 mg/dl (70-99); Potassium 4.9 mmol/L (3.5-5.1); Sodium 135 mmol/L (135-145); eGFR 37.12
[2024-12-23 07:45] VITALS: BP 146/64
[2024-12-23] MEDS: COLACE 100 MG PO (09:45)
[2024-12-23] MEDS: ASPIRIN 325 MG PO (09:45)
[2024-12-23] MEDS: FOLVITE 1 MG PO (09:45)
[2024-12-23] MEDS: KCL 20 MEQ PO (09:45)
[2024-12-23] MEDS: BACTROBAN 2% OINTMENT 1 APPLIC NASAL (09:46)
[2024-12-23] MEDS: DIOVAN 320 MG PO (09:46)
[2024-12-23] MEDS: SENOKOT 17.2 MG PO (09:46)
[2024-12-23] MEDS: NORVASC 10 MG PO (09:46)
[2024-12-23] MEDS: ANCEF 5 IV (09:47)
[2024-12-23 09:55] VITALS: BP 144/56; PULSE 71; O2SAT 98
[2024-12-23] MEDS: CARDURA 2 MG PO (10:28)
--- NOTE | 2024-12-23 10:39 | CM ---
Cm reviewed medical record. Plan for discharge to home. Patient has confirmed his outpatient PT appointment at [facility].
PLAN: home with outpatient PT.
[2024-12-23 11:42] VITALS: BP 151/64; PULSE 75; O2SAT 95
[2024-12-23 11:46] VITALS: BP 133/68
--- NOTE | 2024-12-23 11:55 | W.PN.ORTHO ---
Today's Communication / Plan
-
Continue to monitor voiding/PVRs. May need livingston cath upon d/c.
D/c later today if clinically stable.
Assessment
.
Distal Motor Intact: Yes
Dressing:
Clean, dry and intact.
Assessment:
R hip OA s/p R ISAAC w/ Dr Lockett 12/22/24
DVT prophylaxis - ASA, b/l venous foot pumps
HTN - + parameters - BPs overall stable
JOVANNY, compliant with CPAP (setting 7) - O2 stable on RA by POD 1
- IS
- Resumed CPAP HS
CKD stage 3B with recent HERBERT - minimize nephrotoxins
- S/p IVF. Did encourage oral hydration
- BMP stable POD 1
Chronic constipation - added MOM HS to bowel regimen of Colace and Senna
Balance difficulties - on fall precautions
Chronic Inflammatory Demyelinating Polyneuropathy, on weekly Vyvgart - Vyvgart held prior to surgery
- Will continue to hold Vyvgart for 2 weeks post-surgery as incision heals. OK per neurologist
- Continue Gabapentin HS
Acute on chronic urinary retention - pt notably had urinary retention after remote parotid mass excision
- Monitor voids/PVRs
- Bladder scan/straight cath prn -> needed 2x overnight
- Continue Doxazosin w/ add 2 mg dose today
- May need livingston cath upon d/c. Would need voiding trial w/ urology in next few days
Pernicious anemia, on Vitamin B12 injections - non-invasive hgb 13.4 POD 1
- Continue Vit B12 injections upon d/c
HLD
Chronic venous insufficiency
Mild aortic regurgitation
Colon polyps
Diverticular bleed, 2010, exacerbated by excessive NSAID use
Hepatitis A, approximately 50 years ago
Multilevel degenerative disc disease
Lumbar stenosis
Scoliosis
Squamous and basal cell carcinoma, status post multiple Mohs
Head and neck cancer, status post excision of left-sided neck mass, 2018, and radiation
Benign parotid mass, status post left parotid mass excision
Folic acid deficiency
Macular degeneration
History of central retinal vein occlusion
Obesity, BMI 31.6
Plan
.
Surgery / Date: R ISAAC w/ Dr Lockett 12/22/24
DVT Prophylaxis: Aspirin
Activity:
Out of bed.
PT/OT
Discharge Plan: Home w/ Outpatient PT
Subjective
.
.:
Patient resting comfortably in bed this AM.
R hip pain overall well controlled w/ current pain meds.
Acute on chronic urinary retention - extra dose of 2 mg Doxazosin provided.
Eager for potential d/c today.
Vital Signs and Labs
.
Vital Signs and Labs:
Lab Results
12/07/24 10:58
12/23/24 05:58
Temp Pulse Resp BP Pulse Ox
98.5 F 85 18 133/68 95
12/23/24 11:46 12/23/24 11:46 12/23/24 11:46 12/23/24 11:46 12/23/24 11:46
Non-invasive Hgb result: 13.4
Physical Exam
-
HEENT: No pallor, cyanosis, or jaundice. Throat clear.
NECK: Supple. No JVD.
RESPIRATORY: Lungs clear to auscultation.
CVS: S1, S2 normal. RRR.�
ABDOMEN: Soft, non-tender. No distension.
EXTREMITIES: Strength equal, no calf pain with palpation/dorsiflexion. Calves soft.
SEMICONDUCTOR EQUIPMENT TECHNICIAN: AOx3. No focal deficits. director information security grossly intact
--- NOTE | 2024-12-23 12:46 | W.DS.TRANS ---
DC Summary - Material Combiner
-
Discharge Instructions:
Discharge Diagnosis/Procedures R hip OA s/p R ISAAC w/ Dr Lockett 12/22/24
Diet Regular
Additional Diets Adequate hydration, minimize opioids, and wear
TEDs stockings to prevent low blood pressure/
dizziness
Activity As tolerated,With Walker
Driving Restrictions Not until seen by your Dr
Bathing Restrictions OK to Shower
Other Services PT
Wound Care Leave dressing on until seen by surgeon's office
for follow-up in 2 weeks.
Instructions:
Stand-Alone Forms: Total Hip/Knee Replacement D/C
Changes to Home Medications: Yes
Discharge Medications:
DC Medications w/original date entered in [employer]
fluticasone propionate 50 mcg/actuation nasal spray,suspension 1 spray intranasal HS 05/28/18
folic acid 1 mg tablet 1 mg PO DAILY Supplement 05/28/18
oxymetazoline 0.05 % nasal spray (Afrin Sinus (oxymetazoline)) 1 sprays intranasal HS 05/28/18
rosuvastatin 5 mg tablet 5 mg PO HS High Cholesterol 05/28/18
vitamins A,C,Z-vsxi-slbiol 4,296 mcg-226 mg-90 mg capsule (PreserVision AREDS) 1 cap PO BID Supplement 05/28/18
fexofenadine 180 mg tablet 180 mg PO HS PRN ALLERGIES 06/22/18
potassium chloride 20 mEq tablet,extended release(part/cryst) (Klor-Con M) 20 meq PO BID 09/14/18
ranibizumab 0.3 mg/0.05 mL intravitreal solution for injection (Lucentis) 0.3 mg intravitreal Q28D Macular degeneration 09/02/22
efgartigimod sahil 1008 ov-bopdhcwh-pbcm 11,200 unit/5.6 mL subcut soln (Vyvgart Hytrulo) 5.6 ml SC TU Neurological Condition 05/03/24
Held on 12/23/24. Instructions: Resume on 01/06/25. PLEASE DISCUSS WITH SURGEON BEFORE RESUMING
mupirocin 2 % topical ointment 1 applic intranasal BID #1 tube 12/07/24
Saccharomyces boulardii 250 mg capsule (Florastor) 250 mg PO DAILY #7 caps 12/23/24
acetaminophen 500 mg tablet 1,000 mg (2 x 500 mg) PO Q6H pain #60 tabs 12/23/24
amlodipine 10 mg tablet 10 mg PO DAILY Blood Pressure #1 tab 12/23/24
aspirin 325 mg tablet 325 mg PO DAILY #30 tabs 12/23/24
cefadroxil 500 mg capsule 500 mg PO DAILY #7 caps 12/23/24
docusate sodium 100 mg capsule 100 mg PO BID #30 caps 12/23/24
doxazosin 4 mg tablet 8 mg (2 x 4 mg) PO HS Urinary Issue #1 tab 12/23/24
gabapentin 100 mg capsule 200 mg (2 x 100 mg) PO HS neuropathic pain/sleep #20 caps 12/23/24
ondansetron HCl 4 mg tablet 4 mg PO Q6H PRN nausea and vomiting #30 tabs 12/23/24
oxycodone 5 mg tablet 5 - 10 mg (1 - 2 x 5 mg) PO Q6H PRN moderate-severe pain #30 tabs 12/23/24
polyethylene glycol 3350 17 gram oral powder packet (Miralax) 17 g PO DAILY #30 ea 12/23/24
sennosides 8.6 mg tablet (Juany-eliu) 17.2 mg (2 x 8.6 mg) PO BID #30 tabs 12/23/24
triamterene 37.5 mg-hydrochlorothiazide 25 mg tablet 0.5 tab PO DAILY Blood Pressure #1 tab 12/23/24
valsartan 320 mg tablet 320 mg PO DAILY Blood Pressure #0 tabs 12/23/24
Home Medication Changes
Saccharomyces boulardii 250 mg capsule (Florastor) 250 mg PO DAILY #7 caps 12/23/24
acetaminophen 500 mg tablet 1,000 mg (2 x 500 mg) PO Q6H pain #60 tabs 12/23/24
aspirin 325 mg tablet 325 mg PO DAILY #30 tabs 12/23/24
cefadroxil 500 mg capsule 500 mg PO DAILY #7 caps 12/23/24
docusate sodium 100 mg capsule 100 mg PO BID #30 caps 12/23/24
doxazosin 4 mg tablet 8 mg (2 x 4 mg) PO HS Urinary Issue #1 tab 12/23/24 - for 1 week; then resume 6 mg daily dosing
gabapentin 100 mg capsule 200 mg (2 x 100 mg) PO HS neuropathic pain/sleep #20 caps 12/23/24
ondansetron HCl 4 mg tablet 4 mg PO Q6H PRN nausea and vomiting #30 tabs 12/23/24
oxycodone 5 mg tablet 5 - 10 mg (1 - 2 x 5 mg) PO Q6H PRN moderate-severe pain #30 tabs 12/23/24
polyethylene glycol 3350 17 gram oral powder packet (Miralax) 17 g PO DAILY #30 ea 12/23/24
sennosides 8.6 mg tablet (Juany-eliu) 17.2 mg (2 x 8.6 mg) PO BID #30 tabs 12/23/24
Pending Results: No
--- NOTE | 2024-12-23 12:47 | W.PN.UPDATE ---
Update Note
Progress Note Update
Per RN, pt did void after therapy. Last PVR 128 ml - notably decreased from earlier assessments.
The patient denies any pelvic pain or urge to go.
Given this, will d/c today without livingston.
Will advise patient increase his Doxazosin to 8 mg daily for next week. Pt confirms he has 4 mg tabs at home. Called pharmacy - is OK with his current CrCl.
Should his urinary issues worsen upon d/c, he will call his PCP for further management.
[2024-12-23] MEDS: ROXICODONE 5 MG PO (12:52)
== END 2024-12-23 15:39 | disposition home or self-care (01) | DRG 470 ==
LOC: 2 SOUTH 08:39
PROVIDERS: Physician Assistant; ADMITTING PHYSICIAN Orthopaedic Surgery; FAMILY PHYSICIAN Family Medicine; REFERRING PHYSICIAN Internal Medicine Cardiovascular Disease
PROC: 5A09357 Assistance with Respiratory Ventilation, Less than 24 Consecutive Hours, Continuous Positive Airway Pressure (ICD-10-PCS; 2024-12-22)
PROC: 0SR90JA Replacement of Right Hip Joint with Synthetic Substitute, Uncemented, Open Approach (ICD-10-PCS; 2024-12-22)
DX: M16.11 Unilateral primary osteoarthritis, right hip (principal); G61.81 Chronic inflammatory demyelinating polyneuritis; G47.33 Obstructive sleep apnea (adult) (pediatric); N18.32 Chronic kidney disease, stage 3b; I12.9 Hypertensive chronic kidney disease with stage 1 through stage 4 chronic kidney disease, or unspecified chronic kidney disease; K59.09 Other constipation; R33.9 Retention of urine, unspecified; H35.30 Unspecified macular degeneration; E78.5 Hyperlipidemia, unspecified; I87.2 Venous insufficiency (chronic) (peripheral); M48.061 Spinal stenosis, lumbar region without neurogenic claudication; M41.9 Scoliosis, unspecified; Z68.31 Body mass index [BMI] 31.0-31.9, adult; E66.9 Obesity, unspecified; E53.8 Deficiency of other specified B group vitamins
CPT/HCPCS: 36415; 73502; 80048; 80053; 83036; 85027; 87070; 94660; 97110; 97116; 97163; 97167; 97530; 97535

== ENCOUNTER 2025-01-10 10:38 | Outpatient (RCR) | payer MEDICARE, SELFPAY ==
[2025-01-04 10:45] VITALS: BP 143/51
[2025-01-04] MEDS: VYVGART HYTRULO 1,008MG-11,200 1008 MG SC (11:12)
[2025-01-10 10:45] VITALS: BP 146/48
[2025-01-10] MEDS: VYVGART HYTRULO 1,008MG-11,200 1008 MG SC (10:57)
[2025-01-10 11:30] VITALS: BP 125/50
== END 2025-01-11 10:14 | disposition home or self-care (01) ==
LOC: OID 10:38
PROVIDERS: ATTENDING PHYSICIAN Psychiatry & Neurology Neurology; FAMILY PHYSICIAN Family Medicine; OTHER PHYSICIAN Specialist
DX: G61.81 Chronic inflammatory demyelinating polyneuritis (principal)
CPT/HCPCS: 96372; J9334

== ENCOUNTER 2025-02-14 10:49 | Outpatient (RCR) | payer MEDICARE, SELFPAY ==
[2025-01-17 10:59] VITALS: BP 146/51
[2025-01-17] MEDS: VYVGART HYTRULO 1,008MG-11,200 1008 MG SC (11:01)
[2025-01-24 10:50] VITALS: BP 152/53
[2025-01-24] MEDS: VYVGART HYTRULO 1,008MG-11,200 1008 MG SC (10:58)
[2025-01-24 12:35] VITALS: BP 139/57
[2025-01-31 11:04] VITALS: BP 150/60
[2025-01-31] MEDS: VYVGART HYTRULO 1,008MG-11,200 1008 MG SC (11:13)
[2025-01-31 11:59] VITALS: BP 140/58
[2025-02-07 11:00] VITALS: BP 131/47
[2025-02-07] MEDS: VYVGART HYTRULO 1,008MG-11,200 1008 MG SC (11:11)
[2025-02-07 11:40] VITALS: BP 132/43
[2025-02-14 10:56] VITALS: BP 159/70
[2025-02-14] MEDS: VYVGART HYTRULO 1,008MG-11,200 1008 MG SC (11:10)
== END 2025-02-14 23:59 | disposition home or self-care (01) ==
LOC: OID 10:49
PROVIDERS: ATTENDING PHYSICIAN Psychiatry & Neurology Neurology; FAMILY PHYSICIAN Family Medicine; OTHER PHYSICIAN Specialist
DX: G61.81 Chronic inflammatory demyelinating polyneuritis (principal)
CPT/HCPCS: 96372; J9334

== ENCOUNTER 2025-03-14 10:38 | Outpatient (RCR) | payer MEDICARE, SELFPAY ==
[2025-02-21 11:08] VITALS: BP 151/59
[2025-02-21] MEDS: VYVGART HYTRULO 1,008MG-11,200 1008 MG SC (11:12)
[2025-02-21 11:50] VITALS: BP 138/49
[2025-02-28 10:55] VITALS: BP 134/56
[2025-02-28] MEDS: VYVGART HYTRULO 1,008MG-11,200 1008 MG SC (11:20)
[2025-02-28 12:10] VITALS: BP 129/56
[2025-03-07 11:22] VITALS: BP 142/45
[2025-03-07] MEDS: VYVGART HYTRULO 1,008MG-11,200 1008 MG SC (11:43)
[2025-03-14 11:07] VITALS: BP 147/53
[2025-03-14] MEDS: VYVGART HYTRULO 1,008MG-11,200 1008 MG SC (11:25)
== END 2025-03-16 13:45 | disposition home or self-care (01) ==
LOC: OID 10:38
PROVIDERS: ATTENDING PHYSICIAN Psychiatry & Neurology Neurology; FAMILY PHYSICIAN Family Medicine; OTHER PHYSICIAN Specialist
DX: G61.81 Chronic inflammatory demyelinating polyneuritis (principal)
CPT/HCPCS: 96372; J9334

== ENCOUNTER 2025-04-11 10:29 | Outpatient (RCR) | payer MEDICARE, SELFPAY ==
[2025-03-21 10:50] VITALS: BP 152/54
[2025-03-21 11:02] LABS: Hematocrit 32.7 % (39.0-52.0); Hemoglobin 10.7 g/dL (13.0-18.0); Mean Corp Hgb Conc. 32.7 g/dL (33.0-37.0); Mean Corpuscular Volume 90.3 fL (80.0-94.0); Platelet Count 240 10^3/uL (130-400); Red Cell Dist. Width 13.6 % (11.5-14.5)
[2025-03-21] MEDS: VYVGART HYTRULO 1,008MG-11,200 1008 MG SC (11:06)
[2025-03-21 11:55] VITALS: BP 138/46
[2025-03-21 12:00] LABS: ALT (SGPT) 24 U/L (0-50); AST (SGOT) 20 U/L (17-59); Albumin 4.8 g/dl (3.5-5.0); Alkaline Phosphatase 89 U/L (38-126); Blood Urea Nitrogen 47 mg/dl (9-20); Calcium 9.7 mg/dl (8.4-10.2); Carbon Dioxide 23 mmol/L (22-30); Chloride 105 mmol/L (98-107); Glucose 106 mg/dl (70-99); Potassium 5.3 mmol/L (3.5-5.1); Sodium 137 mmol/L (135-145); Total Protein 6.7 g/dl (6.3-8.2); eGFR 34.79
[2025-03-28 10:57] VITALS: BP 161/52
[2025-03-28] MEDS: VYVGART HYTRULO 1,008MG-11,200 1008 MG SC (10:59)
[2025-03-28 11:17] VITALS: BP 147/51
[2025-04-04 10:45] VITALS: BP 146/56
[2025-04-04] MEDS: VYVGART HYTRULO 1,008MG-11,200 1008 MG SC (11:11)
[2025-04-11 10:45] VITALS: BP 154/57
[2025-04-11] MEDS: VYVGART HYTRULO 1,008MG-11,200 1008 MG SC (10:49)
[2025-04-11 11:25] VITALS: BP 154/57
== END 2025-04-12 07:56 | disposition home or self-care (01) ==
LOC: OID 10:29
PROVIDERS: ATTENDING PHYSICIAN Psychiatry & Neurology Neurology; FAMILY PHYSICIAN Family Medicine; OTHER PHYSICIAN Specialist
DX: G61.81 Chronic inflammatory demyelinating polyneuritis (principal)
CPT/HCPCS: 36415; 80053; 82550; 85025; 85652; 96372; J9334

== ENCOUNTER → 2025-05-04 12:42 | Outpatient (REF) | payer MEDICARE, SELFPAY | LOC: RAD 12:42 | PROVIDERS: ATTENDING PHYSICIAN Specialist; FAMILY PHYSICIAN Family Medicine | DX: R60.0 Localized edema (principal); R80.9 Proteinuria, unspecified | CPT/HCPCS: 93971 ==

== ENCOUNTER 2025-05-09 10:42 | Outpatient (RCR) | payer MEDICARE, SELFPAY ==
[2025-04-18 10:45] VITALS: BP 164/52
[2025-04-18] MEDS: VYVGART HYTRULO 1,008MG-11,200 1008 MG SC (10:53)
[2025-04-25 11:05] VITALS: BP 169/65
[2025-04-25] MEDS: VYVGART HYTRULO 1,008MG-11,200 1008 MG SC (11:16)
[2025-05-02 11:11] VITALS: BP 169/75
[2025-05-02] MEDS: VYVGART HYTRULO 1,008MG-11,200 1008 MG SC (11:21)
[2025-05-09 10:54] VITALS: BP 148/53
[2025-05-09] MEDS: VYVGART HYTRULO 1,008MG-11,200 1008 MG SC (11:03)
== END 2025-05-17 13:09 | disposition home or self-care (01) ==
LOC: OID 10:42
PROVIDERS: ATTENDING PHYSICIAN Psychiatry & Neurology Neurology; FAMILY PHYSICIAN Family Medicine; OTHER PHYSICIAN Specialist
DX: G61.81 Chronic inflammatory demyelinating polyneuritis (principal)
CPT/HCPCS: 96372; J9334